=== PATIENT | male | born 1950 | race American Indian/Alaskan Native ===

== ENCOUNTER 2019-03-25 09:43 | Inpatient (IN) | payer MEDICARE ==
[2019-03-25 11:00] LABS: Basophils % (Auto) 0.4 % (0.0-1.8); Eosinophils # (Auto) 0.1 K/mm3 (0.0-0.4); Eosinophils % (Auto) 0.8 % (0.0-4.3); Hematocrit 42.5 % (35.5-45.6); Lymphocytes # (Auto) 3.2 K/mm3 (1.2-5.4); Lymphocytes % (Auto) 44.6 % (13.4-35.0); Mean Corpuscular HGB Conc 33 % (32-34); Mean Corpuscular Volume 89 fl (84-94); Monocytes # (Auto) 0.3 K/mm3 (0.0-0.8); Monocytes % (Auto) 4.8 % (0.0-7.3); Platelet Count 252 K/mm3 (140-440); Red Blood Count 4.78 M/mm3 (3.65-5.03); Red Cell Distribution Width 13.5 % (13.2-15.2)
[2019-03-25 11:16] LABS: Albumin 4.1 g/dL (3.9-5); Calcium 9.8 mg/dL (8.4-10.2)
[2019-03-25 11:31] LABS: INR 1.15 (0.87-1.13); Partial Thromboplastin Time 26.4 Sec. (24.2-36.6); Thrombin Time 18.9 Sec. (15.1-19.6)
--- NOTE | 2019-03-25 12:02 | Emergency Department Report ---
HPI - General Chief Complaint: Neuro Symptoms/Deficit Time Seen by Provider: 03/25/19 11:41 - HPI HPI: Room 22 The patient is a 68-year-old male presenting with a chief complaint lower extremity weakness and slurred speech. Family states the patient has been dragging his right lower extremity and has slurred speech for the past 7 days. Family states over the past 4 days the patient has exhibited difficulty swallowing and has not been able to keep any food down. When asked how he is feeling the patient replies "I don't feel good." The patient fell several days ago and went to his primary physician's office where x-rays were performed (no fractures seen). Location: [See above] Duration: [See above] Quality: [See above] Severity: [See above] Timing: [See above] Context: [See above] Modifying factors: [See above] Associated signs and symptoms: [see above] ED Past Medical Hx - Past Medical History Previous Medical History?: Yes Hx Hypertension: Yes Hx CVA: Yes (right sided weakness) Hx Diabetes: Yes - Surgical History Past Surgical History?: No - Family History Family history: no significant - Social History Smoking Status: Current Every Day Smoker (1/2 pack per day although is slightly low at a starter this ventricular like it away and she is going) Substance Use Type: None ED Review of Systems ROS: Stated complaint: NAUSEA/SLURRED SPEECH,NOT EATING Other details as noted in HPI Constitutional: no symptoms reported ENT: other (dysphagia) Respiratory: no symptoms reported Cardiovascular: denies: chest pain Endocrine: no symptoms reported Gastrointestinal: vomiting Neurological: denies: headache Physical Exam - Physical Exam Vital Signs: Vital Signs 03/25/19 09:58 Temperature 97.4 F L Pulse Rate 95 H Respiratory 18 Rate Blood Pressure 105/56 O2 Sat by Pulse 100 Oximetry Physical Exam: GENERAL: The patient is well-developed well-nourished male sitting on stretcher not appearing to be in acute distress. [] HEENT: Normocephalic. Atraumatic. Extraocular motions are intact. Patient has moist mucous membranes. NECK: Supple. Trachea midline CHEST/LUNGS: Clear to auscultation. There is no respiratory distress noted. HEART/CARDIOVASCULAR: Regular. There is no tachycardia. There is no gallop rub or murmur. ABDOMEN: Abdomen is soft, nontender. Patient has normal bowel sounds. There is no abdominal distention. SKIN: There is no rash. There is no edema. There is no diaphoresis. NEURO: The patient is awake, alert, and oriented. The patient is cooperative. Cranial nerves II through XII grossly intact, no drift. Moves all extremities well. NIHSS= 1 MUSCULOSKELETAL: There is no evidence of acute injury. ED Course Vital Signs 03/25/19 09:58 Temperature 97.4 F L Pulse Rate 95 H Respiratory 18 Rate Blood Pressure 105/56 O2 Sat by Pulse 100 Oximetry ED Medical Decision Making - Lab Data Result diagrams: 03/25/19 10:31 03/25/19 10:31 Laboratory Tests 03/25/19 03/25/19 03/25/19 10:31 10:31 10:31 WBC 7.3 RBC 4.78 Hgb 14.0 Hct 42.5 MCV 89 MCH 29 MCHC 33 RDW 13.5 Plt Count 252 Lymph % (Auto) 44.6 H [place] % (Auto) 4.8 Eos % (Auto) 0.8 Baso % (Auto) 0.4 Lymph # 3.2 [place] # 0.3 Eos # 0.1 Baso # 0.0 Seg Neutrophils % 49.4 Seg Neutrophils # 3.6 PT 14.6 INR 1.15 H APTT 26.4 Thrombin Time 18.9 Sodium 142 Potassium 4.0 Chloride 104.3 Carbon Dioxide 19 L Anion Gap 23 BUN 37 H Creatinine 1.3 Estimated GFR 55 BUN/Creatinine Ratio 28 Glucose 121 H Calcium 9.8 Total Bilirubin 1.00 AST 46 H ALT 46 Alkaline Phosphatase 60 Total Creatine Kinase 145 CK-MB (CK-2) 4.0 CK-MB (CK-2) Rel Index 2.7 Troponin T 0.025 Total Protein 8.4 H Albumin 4.1 Albumin/Globulin Ratio 1.0 - EKG Data -: EKG Interpreted by Ks EKG shows normal: sinus rhythm Rate: bradycardia (58 bpm) - EKG Data When compared to previous EKG there are: previous EKG unavailable Interpretation: nonspecific ST-T wave nisreen (T-wave inversions in leads 3, V4, V5, V6) - Radiology Data Radiology results: report reviewed (CT head), image reviewed (CT head) [facility] [address] [place] [address] Cat Scan Report Signed Patient: KIRA BRUMFIELD SANIA MR#: [id number] : 1950 Acct:[id number] Age/Sex: 68 / M ADM Date: 03/25/19 Loc: ED Attending Dr: Ordering Physician: KAT PACE MD Date of Service: 03/25/19 Procedure(s): CT head/brain wo con Accession Number(s): [id number] cc: KAT PACE MD CT head/brain wo con INDICATION / CLINICAL INFORMATION: 68 years Male; SLURRED SPEECH. TECHNIQUE: Routine CT head without contrast. All CT scans at this location are performed using CT dose reduction for ALARA by means of automated exposure control. COMPARISON: None. FINDINGS: BRAIN / INTRACRANIAL CONTENTS: Small corpus striatal type infarct seen in the anterior gangliocapsular region on the left-most likely late subacute to chronic in age. Small lacunar infarcts seen bilaterally in the gangliocapsular regions. Otherwise, no acute hemorrhage, mass effect, midline shift, hydrocephalus, or acute, large territorial infarct. Mild cerebral and cerebellar atrophy. There are moderate areas of decreased attenuation in the white matter of the cerebral hemispheres. These are nonspecific findings and may be related to microangiopathy (hypertension, diabetes, atherosclerosis), given the patient's age. It might be difficult to evaluate for small areas of ischemia without diffusion imaging by MRI. CRANIOCERVICAL JUNCTION: No significant abnormality. ORBITS: No significant abnormality of visualized orbits. SINUSES / MASTOIDS: No significant abnormality the visualized paranasal sinuses or mastoid air cells. ADDITIONAL FINDINGS: Atherosclerotic disease is seen in the anterior circulation . IMPRESSION: 1. No focal mass, hemorrhage, hydrocephalus, or acute, large territorial infarct. Follow-up with diffusion imaging by MRI, as clinically warranted. Signer Name: Georges Hector MD, III Signed: 03/25/2019 1:15 PM Workstation Name: [id number] Transcribed By: HR Dictated By: Georges menezes MD Electronically Authenticated By: Georges Hector MD Signed Date/Time: 03/25/19 1315 DD/ 1309 TD/TT: - Differential Diagnosis CVA, dysphagia Critical care attestation.: If time is entered above; I have spent that time in minutes in the direct care of this critically ill patient, excluding procedure time. ED Disposition Clinical Impression: CVA (cerebral vascular accident), Dysphagia Disposition: DC-01 TO HOME OR SELFCARE Is pt being admited?: No Does the pt Need Aspirin: No Condition: Stable Time of Disposition: 13:27 (hospitalist paged (Dr Fisher))
--- NOTE | 2019-03-25 13:20 | Cat Scan Report ---
CT head/brain wo con INDICATION / CLINICAL INFORMATION: 68 years Male; SLURRED SPEECH. TECHNIQUE: Routine CT head without contrast. All CT scans at this location are performed using CT dos e reduction for ALARA by means of automated exposure control. COMPARISON: None. FINDINGS: BRAIN / INTRACRANIAL CONTENTS: Small corpus striatal type infarct seen in the anterior gangliocapsula r region on the left-most likely late subacute to chronic in age. Small lacunar infarcts seen bilater ally in the gangliocapsular regions. Otherwise, no acute hemorrhage, mass effect, midline shift, hydrocephalus, or acute, large territori al infarct. Mild cerebral and cerebellar atrophy. There are moderate areas of decreased attenuation in the white matter of the cerebral hemispheres. Th felecia are nonspecific findings and may be related to microangiopathy (hypertension, diabetes, atheroscl erosis), given the patient's age. It might be difficult to evaluate for small areas of ischemia witho ut diffusion imaging by MRI. CRANIOCERVICAL JUNCTION: No significant abnormality. ORBITS: No significant abnormality of visualized orbits. SINUSES / MASTOIDS: No significant abnormality the visualized paranasal sinuses or mastoid air cells. ADDITIONAL FINDINGS: Atherosclerotic disease is seen in the anterior circulation. IMPRESSION: 1. No focal mass, hemorrhage, hydrocephalus, or acute, large territorial infarct. Follow-up with diff usion imaging by MRI, as clinically warranted. Signer Name: Georges Hector MD, III Signed: 03/25/2019 1:15 PM Workstation Name: [id number]
[2019-03-25] MEDS ORDERED: ASPIRIN 325 MG TAB PO ONE (13:28)
--- NOTE | 2019-03-25 23:03 | History and Physical Report ---
History of Present Illness Date of examination: 03/25/19 Date of admission: 03/25/19 13:29 Chief complaint: RLE WEAKNESS ! WEEK History of present illness: 68-year-old male presenting with a chief complaint of Rt lower extremity weakness and slurred speech. Family states the patient has been dragging his right lower extremity and has slurred speech for the past 7 days. Family states over the past 4 days the patient has exhibited difficulty swallowing and has not been able to keep any food down. When asked how he is feeling the patient replies "I don't feel good." The patient fell several days ago and went to his primary physician's office where x-rays were performed (no fractures seen). Past Medical History Previous Medical History?: Yes Hypertension: Yes CVA: Yes (right sided weakness) Diabetes: Yes Surgical History Past Surgical History?: No Family History Family history: no significant Social History Smoking Status: Current Every Day Smoker (1/2 pack per day although is slightly low at a starter this ventricular like it away and she is going) Substance Use Type: None Review of Systems ROS: Stated complaint: NAUSEA/SLURRED SPEECH,NOT EATING Other details as noted in HPI Constitutional: no symptoms reported ENT: other (dysphagia) Respiratory: no symptoms reported Cardiovascular: denies: chest pain Endocrine: no symptoms reported Gastrointestinal: vomiting Neurological: denies: headache Medications and Allergies Allergies Allergy/AdvReac Type Severity Reaction Status Date / Time No Known Allergies Allergy Unverified 03/25/19 09:44 Exam - Constitutional Vitals: Temp Pulse Resp BP Pulse Ox 98.2 F 64 18 147/78 99 03/25/19 11:50 03/25/19 16:30 03/25/19 16:30 03/25/19 16:30 03/25/19 16:30 General appearance: Present: no acute distress, well-nourished - EENT Eyes: Present: PERRL ENT: hearing intact, clear oral mucosa - Neck Neck: Present: supple, normal ROM - Respiratory Respiratory effort: normal Respiratory: bilateral: CTA - Cardiovascular Heart rate: 78 Rhythm: regular Heart Sounds: Present: S1 & S2. Absent: rub, click - Extremities Extremities: no ischemia, pulses intact, pulses symmetrical, No edema, abnormal Peripheral Pulses: within normal limits - Abdominal General gastrointestinal: Present: soft, non-tender, non-distended, normal bowel sounds Male genitourinary: Present: normal - Integumentary Integumentary: Present: clear, warm, dry - Musculoskeletal Musculoskeletal: right sided weakness - Psychiatric Psychiatric: appropriate mood/affect, intact judgment & insight - Neurologic Neurologic: CNII-XII intact, focal deficits (RLE 3/5 power RUE 5-/5), moves all extremities - Allied Health Allied health notes reviewed: nursing, case management Results - Labs CBC & Chem 7: 03/25/19 10:31 03/25/19 10:31 Labs: Laboratory Last Values WBC 7.3 K/mm3 (4.5-11.0) 03/25/19 10:31 RBC 4.78 M/mm3 (3.65-5.03) 03/25/19 10:31 Hgb 14.0 gm/dl (11.8-15.2) 03/25/19 10:31 Hct 42.5 % (35.5-45.6) 03/25/19 10:31 MCV 89 fl (84-94) 03/25/19 10:31 MCH 29 pg (28-32) 03/25/19 10:31 MCHC 33 % (32-34) 03/25/19 10:31 RDW 13.5 % (13.2-15.2) 03/25/19 10:31 Plt Count 252 K/mm3 (140-440) 03/25/19 10:31 Lymph % (Auto) 44.6 % (13.4-35.0) H 03/25/19 10:31 [place] % (Auto) 4.8 % (0.0-7.3) 03/25/19 10:31 Eos % (Auto) 0.8 % (0.0-4.3) 03/25/19 10:31 Baso % (Auto) 0.4 % (0.0-1.8) 03/25/19 10:31 Lymph # 3.2 K/mm3 (1.2-5.4) 03/25/19 10:31 [place] # 0.3 K/mm3 (0.0-0.8) 03/25/19 10:31 Eos # 0.1 K/mm3 (0.0-0.4) 03/25/19 10:31 Baso # 0.0 K/mm3 (0.0-0.1) 03/25/19 10:31 Seg Neutrophils % 49.4 % (40.0-70.0) 03/25/19 10:31 Seg Neutrophils # 3.6 K/mm3 (1.8-7.7) 03/25/19 10:31 PT 14.6 Sec. (12.2-14.9) 03/25/19 10:31 INR 1.15 (0.87-1.13) H 03/25/19 10:31 APTT 26.4 Sec. (24.2-36.6) 03/25/19 10:31 Thrombin Time 18.9 Sec. (15.1-19.6) 03/25/19 10:31 Sodium 142 mmol/L (137-145) 03/25/19 10:31 Potassium 4.0 mmol/L (3.6-5.0) 03/25/19 10:31 Chloride 104.3 mmol/L (98-107) 03/25/19 10:31 Carbon Dioxide 19 mmol/L (22-30) L 03/25/19 10:31 Anion Gap 23 mmol/L 03/25/19 10:31 BUN 37 mg/dL (9-20) H 03/25/19 10:31 Creatinine 1.3 mg/dL (0.8-1.5) 03/25/19 10:31 Estimated GFR 55 ml/min 03/25/19 10:31 BUN/Creatinine Ratio 28 % 03/25/19 10:31 Glucose 121 mg/dL (75-100) H 03/25/19 10:31 POC Glucose 92 (70-105) 03/25/19 13:55 Calcium 9.8 mg/dL (8.4-10.2) 03/25/19 10:31 Total Bilirubin 1.00 mg/dL (0.1-1.2) 03/25/19 10:31 AST 46 units/L (5-40) H 03/25/19 10:31 ALT 46 units/L (7-56) 03/25/19 10:31 Alkaline Phosphatase 60 units/L (35-129) 03/25/19 10:31 Total Creatine Kinase 145 units/L (55-170) 03/25/19 10:31 CK-MB (CK-2) 4.0 ng/mL (0.0-4.0) 03/25/19 10:31 CK-MB (CK-2) Rel Index 2.7 (0-4) 03/25/19 10:31 Troponin T 0.025 ng/mL (0.00-0.029) 03/25/19 10:31 Total Protein 8.4 g/dL (6.3-8.2) H 03/25/19 10:31 Albumin 4.1 g/dL (3.9-5) 03/25/19 10:31 Albumin/Globulin Ratio 1.0 % 03/25/19 10:31 Short CBC 03/25/19 Range/Units 10:31 WBC 7.3 (4.5-11.0) K/mm3 Hgb 14.0 (11.8-15.2) gm/dl Hct 42.5 (35.5-45.6) % Plt Count 252 (140-440) K/mm3 BMP 03/25/19 10:31 Sodium 142 Potassium 4.0 Chloride 104.3 Carbon Dioxide 19 L BUN 37 H Creatinine 1.3 Glucose 121 H Calcium 9.8 Cardiac Enzymes 03/25/19 Range/Units 10:31 Total Creatine Kinase 145 (55-170) units/L CK-MB (CK-2) 4.0 (0.0-4.0) ng/mL Troponin T 0.025 (0.00-0.029) ng/mL Liver Function 03/25/19 Range/Units 10:31 Total Bilirubin 1.00 (0.1-1.2) mg/dL AST 46 H (5-40) units/L ALT 46 (7-56) units/L Alkaline Phosphatase 60 (35-129) units/L Albumin 4.1 (3.9-5) g/dL - Imaging and Cardiology EKG: report reviewed (Sinus Bradycardia 58/min) CT Scan - head: report reviewed (NAF) Assessment and Plan Advance Directives: Yes (Full code) VTE prophylaxis?: Chemical Plan of care discussed with patient/family: Yes - Patient Problems (1) CVA (cerebral vascular accident) Current Visit: Yes Status: Acute Qualifiers: Laterality of affected vessel: left Plan to address problem: CVA w/u especially MRI Neuro consult requested (2) Dysphagia Current Visit: Yes Status: Acute Qualifiers: Dysphagia type: oral phase Qualified Code(s): R13.11 - Dysphagia, oral phase Plan to address problem: Swallow screen and MBS if necessary (3) HTN (hypertension) Current Visit: Yes Status: Chronic Qualifiers: Hypertension type: essential hypertension Qualified Code(s): I10 - Essential (primary) hypertension Plan to address problem: Cont antihypertensives (4) T2DM (type 2 diabetes mellitus) Current Visit: Yes Status: Chronic Qualifiers: Diabetes mellitus detention insulin use: without intermission coordinator use Plan to address problem: Cont coverage (5) DVT prophylaxis Current Visit: Yes Status: Acute Plan to address problem: On Lovenox and GI prophylaxis
[2019-03-25] MEDS ORDERED: ONDANSETRON 4 MG/2 ML INJ IV PRN (23:04)
[2019-03-25] MEDS ORDERED: ACETAMINOPHEN 325 MG TAB PO PRN (23:04)
[2019-03-25] MEDS ORDERED: oxyCODONE /ACETAMINOPHEN 5-325MG TAB PO PRN (23:05)
[2019-03-25] MEDS ORDERED: HYDROmorphone 1 MG/1 ML INJ IV PRN (23:05)
[2019-03-25] MEDS ORDERED: METOCLOPRAMIDE 10 MG/2 ML INJ IV PRN (23:05)
[2019-03-25] MEDS ORDERED: SODIUM CHLORIDE 0.9% 1000 ML 1,000 ML IV SCH (23:45)
[2019-03-26] MEDS: FAMOTIDINE 20 MG TAB PO SCH ×3 (02:35→21:08)
--- NOTE | 2019-03-26 10:02 | Consultation ---
History of Present Illness Consult date: 03/26/19 History of present illness: see the note from ED severe legs weakness and Slurred speech CT shows chronic multi infract state due to small vessel disease will check CPK due to leg weakness Medications and Allergies Allergies Allergy/AdvReac Type Severity Reaction Status Date / Time No Known Allergies Allergy Unverified 03/25/19 09:44 Active Meds: Active Medications Acetaminophen (Tylenol) 650 mg PO Q4H PRN PRN Reason: Pain MILD(1-3)/Fever >100.5/[place] Famotidine (Pepcid) 20 mg PO BID [facility] Last Admin: 03/26/19 02:35 Dose: Not Given Documented by: Hydromorphone HCl (Dilaudid) 0.25 mg IV Q3H PRN PRN Reason: Pain, Moderate (4-6) Sodium Chloride (Nacl 0.9% 1000 Ml) 1,000 mls @ 75 mls/hr IV DIRECT [place]I Stop: 03/26/19 11:00 Metoclopramide HCl (Reglan) 10 mg IV Q6H PRN PRN Reason: Nausea And Vomiting Ondansetron HCl (Zofran) 4 mg IV Q8H PRN PRN Reason: Nausea And Vomiting Oxycodone/Acetaminophen (Percocet 5/325) 1 tab PO Q6H PRN PRN Reason: Pain, Moderate (4-6) Sodium Chloride (Sodium Chloride Flush Syringe 10 Ml) 10 ml IV BID [place] Sodium Chloride (Sodium Chloride Flush Syringe 10 Ml) 10 ml IV PRN PRN PRN Reason: LINE FLUSH Physical Examination - Vital Signs Vital Signs: Vital Signs Temp Pulse Resp BP Pulse Ox 97.4 F L 95 H 18 105/56 100 03/25/19 09:58 03/25/19 09:58 03/25/19 09:58 03/25/19 09:58 03/25/19 09:58 Results - Laboratory Findings CBC and BMP: 03/25/19 10:31 03/25/19 10:31 Abnormal Lab Findings: Abnormal Labs 03/25/19 03/25/19 03/25/19 10:31 10:31 10:31 Lymph % (Auto) 44.6 H INR 1.15 H Carbon Dioxide 19 L BUN 37 H Glucose 121 H AST 46 H Total Protein 8.4 H
--- NOTE | 2019-03-26 10:29 | Consultation ---
HISTORY OF PRESENT ILLNESS: This is a 68-year-old male who presents to [facility] with chief complaint of lower leg weakness and aphasia. Family says that he had developed lower extremity weakness, slurred speech difficulty, not eating. He presented to the hospital with blood pressure was slightly reduced at 105/56. His blood glucose was elevated at 121. His hematocrit was 42. His BUN was 37. His creatinine was 1.3. AST and ALT levels were slightly elevated. Total protein was 8.4, albumin was 4.1. The patient had a CT scan of the head, which I have reviewed and the CT scan shows rodriguez and white matter atrophy, evidence of an old infarct in both external and internal capsules, attenuation of the white matter in the deep white matter, particularly so in the left versus the right hemisphere. This is more noticeable in the left mid frontal region and in the deep white matter. 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 The patient's temporal horns are unremarkable. He has white matter changes in the deep white matter bilaterally. Reviewing over his brainstem, I do not see any marked abnormalities there. PHYSICAL EXAMINATION: VITAL SIGNS: The patient's blood pressure is 135/76, temperature is 97.5, pulse rate is 60, respirations 18. NEUROLOGIC: The patient's gait is reduced. He has slurred speech. Affect is withdrawn. Cranial nerves otherwise intact. No tremors or asterixis. No parkinsonian signs or symptoms. Oriented x 3. Motor tone is reduced in the legs. Babinski signs are not present. Reflexes are present, but reduced. IMPRESSION: Multi-stroke syndrome. I suspect deep white matter disease, probably infarcts, probably lacunar infarcts of very marked nature. I would recommend vascular workup, getting carotid artery ultrasound, echocardiography, MRI. I would also think it is probably not a bad idea to get a C-spine series as occasionally this can be an additional issue that needs addressing. JOB# [id number] RAI/NTS
--- NOTE | 2019-03-26 12:31 | Consultation ---
History of Present Illness - Reason for Consult Consult date: 03/26/19 chronic renal failure Requesting physician: ELEANOR SINGH - History of Present Illness 68-year-old male presenting with a chief complaint of Rt lower extremity weakness and slurred speech. Family stated the patient has been dragging his right lower extremity and has slurred speech for the past 7 days. Family stated over the past 4 days the patient has exhibited difficulty swallowing and has not been able to keep any food down. When asked how he is feeling the patient replies "I don't feel good." The patient fell several days ago and went to his primary physician's office where x-rays were performed (no fractures seen). Past History Past Surgical History: No surgical history Social history: no significant social history Family history: no significant family history Medications and Allergies Allergies Allergy/AdvReac Type Severity Reaction Status Date / Time No Known Allergies Allergy Unverified 03/25/19 09:44 Active Meds: Active Medications Acetaminophen (Tylenol) 650 mg PO Q4H PRN PRN Reason: Pain MILD(1-3)/Fever >100.5/[place] Famotidine (Pepcid) 20 mg PO BID [facility] Last Admin: 03/26/19 11:40 Dose: 20 mg Documented by: Hydromorphone HCl (Dilaudid) 0.25 mg IV Q3H PRN PRN Reason: Pain, Moderate (4-6) Metoclopramide HCl (Reglan) 10 mg IV Q6H PRN PRN Reason: Nausea And Vomiting Ondansetron HCl (Zofran) 4 mg IV Q8H PRN PRN Reason: Nausea And Vomiting Oxycodone/Acetaminophen (Percocet 5/325) 1 tab PO Q6H PRN PRN Reason: Pain, Moderate (4-6) Sodium Chloride (Sodium Chloride Flush Syringe 10 Ml) 10 ml IV BID [facility] Last Admin: 03/26/19 11:41 Dose: 10 ml Documented by: Sodium Chloride (Sodium Chloride Flush Syringe 10 Ml) 10 ml IV PRN PRN PRN Reason: LINE FLUSH Exam - Vital Signs Vital signs: Vital Signs Temp Pulse Resp BP Pulse Ox 97.4 F L 95 H 18 105/56 100 03/25/19 09:58 03/25/19 09:58 03/25/19 09:58 03/25/19 09:58 03/25/19 09:58 - General Appearance General appearance: well-developed, well-nourished, appears stated age EENT: PERRL, mucous membranes moist Neck: Present: neck supple, trachea midline. Absent: JVD/HJR, Masses Respiratory: Clear to Ascultation Heart: regular, normal heart rate Gastrointestinal: Present: normal, normoactive bowel sounds Integumentary: no rash, other (no edema) Results - Lab Results 03/25/19 10:31 03/25/19 10:31 Most recent lab results Calcium 9.8 mg/dL (8.4-10.2) 03/25/19 10:31 Assessment and Plan Impression * Renal insufficiency. Most likely acute on chronic * Likely CVA * History of hypertension * Metabolic acidosis Recommendations * Check a UA as well as a fractional excretion of sodium * Renal ultrasound to assess kidney size and echogenicity * Gentle IV hydration * Avoid nephrotoxins * Monitor fluid status and electrolytes closely * Thank you very much for the consultation. Shall follow along with you
[2019-03-26 13:16] LABS: Alanine Aminotransferase 50 units/L (7-56); Albumin 3.7 g/dL (3.9-5); BUN/Creatinine Ratio 30; Blood Urea Nitrogen 33 mg/dL (9-20); Calcium 9.8 mg/dL (8.4-10.2); Chol/HDL Ratio 5.81 %; HDL Cholesterol 27 mg/dL (40-59); Hemolysis Index 16; LDL Cholesterol,Direct 117 mg/dL (50-130)
--- NOTE | 2019-03-26 13:24 | Progress Note ---
Assessment and Plan - Patient Problems (1) Left-sided muscle weakness Current Visit: Yes Status: Acute Plan to address problem: May be secondary to dehydration versus new CVA. CT head shows old lacunar infarcts. MRI pending. We'll treat now as if patient was having a CVA. Rehabilitation MRI pending. Continue antiplatelet and antilipid therapy. (2) CVA (cerebral vascular accident) Current Visit: Yes Status: Acute Qualifiers: Laterality of affected vessel: left Plan to address problem: Cannot confirm new CVA now but can't confirm oh CVA or coronary infarct. Neurology following. (3) HTN (hypertension) Current Visit: Yes Status: Chronic Qualifiers: Hypertension type: essential hypertension Qualified Code(s): I10 - Essential (primary) hypertension Plan to address problem: Patient continues to have fair control of blood pressure. 135/76. We'll start patient on amlodipine if BP is high. 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 History Interval history: Patient 68-year-old male presents with increasing left lower extremity weakness and slurred speech 5-7 days. Patient at present alert still has left-sided weakness. Brother at bedside no new concerns at this particular time. Patient informed he's had a previous CVA at some point most likely lacunar infarct. Multi-infarct disease. MRI pending. Patient also had renal insufficiency. Hospitalist Physical - Constitutional Vitals: Temp Pulse Resp BP Pulse Ox 97.9 F 48 L 18 151/73 99 03/26/19 12:04 03/26/19 12:04 03/26/19 12:04 03/26/19 12:04 03/26/19 12:04 General appearance: Present: no acute distress, well-nourished - EENT Eyes: Present: PERRL, EOM intact ENT: poor dentition, other (decreased hearing extremely poor dentition tension) - Neck Neck: Present: supple, normal ROM - Respiratory Respiratory effort: normal Respiratory: bilateral: CTA, rhonchi (few) - Cardiovascular Rhythm: regular Heart Sounds: Present: S1 & S2 - Extremities Extremities: no ischemia, pulses intact, No edema Extremity abnormal: pulses diminished Peripheral Pulses: within normal limits - Abdominal General gastrointestinal: soft, non-tender, non-distended, normal bowel sounds - Integumentary Integumentary: Present: clear, warm, dry - Psychiatric Psychiatric: appropriate mood/affect, intact judgment & insight, memory intact, cooperative - Neurologic Neurologic: focal deficits, other (left-sided weakness.) Results - Labs CBC & Chem 7: 03/25/19 10:31 03/26/19 12:27 Labs: Laboratory Last Values WBC 7.3 K/mm3 (4.5-11.0) 03/25/19 10:31 RBC 4.78 M/mm3 (3.65-5.03) 03/25/19 10:31 Hgb 14.0 gm/dl (11.8-15.2) 03/25/19 10:31 Hct 42.5 % (35.5-45.6) 03/25/19 10:31 MCV 89 fl (84-94) 03/25/19 10:31 MCH 29 pg (28-32) 03/25/19 10:31 MCHC 33 % (32-34) 03/25/19 10:31 RDW 13.5 % (13.2-15.2) 03/25/19 10:31 Plt Count 252 K/mm3 (140-440) 03/25/19 10:31 Lymph % (Auto) 44.6 % (13.4-35.0) H 03/25/19 10:31 Dare % (Auto) 4.8 % (0.0-7.3) 03/25/19 10:31 Eos % (Auto) 0.8 % (0.0-4.3) 03/25/19 10:31 Baso % (Auto) 0.4 % (0.0-1.8) 03/25/19 10:31 Lymph # 3.2 K/mm3 (1.2-5.4) 03/25/19 10:31 Dare # 0.3 K/mm3 (0.0-0.8) 03/25/19 10:31 Eos # 0.1 K/mm3 (0.0-0.4) 03/25/19 10:31 Baso # 0.0 K/mm3 (0.0-0.1) 03/25/19 10:31 Seg Neutrophils % 49.4 % (40.0-70.0) 03/25/19 10:31 Seg Neutrophils # 3.6 K/mm3 (1.8-7.7) 03/25/19 10:31 PT 14.6 Sec. (12.2-14.9) 03/25/19 10:31 INR 1.15 (0.87-1.13) H 03/25/19 10:31 APTT 26.4 Sec. (24.2-36.6) 03/25/19 10:31 Thrombin Time 18.9 Sec. (15.1-19.6) 03/25/19 10:31 Sodium 141 mmol/L (137-145) 03/26/19 12:27 Potassium 4.2 mmol/L (3.6-5.0) 03/26/19 12:27 Chloride 104.4 mmol/L (98-107) 03/26/19 12:27 Carbon Dioxide 21 mmol/L (22-30) L 03/26/19 12:27 Anion Gap 20 mmol/L 03/26/19 12:27 BUN 33 mg/dL (9-20) H 03/26/19 12:27 Creatinine 1.1 mg/dL (0.8-1.5) 03/26/19 12:27 Estimated GFR > 60 ml/min 03/26/19 12:27 BUN/Creatinine Ratio 30 % 03/26/19 12:27 Glucose 156 mg/dL (75-100) H 03/26/19 12:27 POC Glucose 70 (70-105) 03/26/19 11:41 Hemoglobin A1c 5.7 % (4-6) 03/25/19 23:24 Calcium 9.8 mg/dL (8.4-10.2) 03/26/19 12:27 Total Bilirubin 0.90 mg/dL (0.1-1.2) 03/26/19 12:27 AST 51 units/L (5-40) H 03/26/19 12:27 ALT 50 units/L (7-56) 03/26/19 12:27 Alkaline Phosphatase 57 units/L (35-129) 03/26/19 12:27 Total Creatine Kinase 117 units/L (55-170) 03/26/19 12:27 CK-MB (CK-2) 4.0 ng/mL (0.0-4.0) 03/25/19 10:31 CK-MB (CK-2) Rel Index 2.7 (0-4) 03/25/19 10:31 Troponin T 0.025 ng/mL (0.00-0.029) 03/25/19 10:31 Total Protein 7.9 g/dL (6.3-8.2) 03/26/19 12:27 Albumin 3.7 g/dL (3.9-5) L 03/26/19 12:27 Albumin/Globulin Ratio 0.9 % 03/26/19 12:27 Triglycerides 116 mg/dL (2-149) 03/26/19 12:27 Cholesterol 157 mg/dL (50-199) 03/26/19 12:27 LDL Cholesterol Direct 117 mg/dL (50-130) 03/26/19 12:27 HDL Cholesterol 27 mg/dL (40-59) L 03/26/19 12:27 Cholesterol/HDL Ratio 5.81 % 03/26/19 12:27 - Imaging and Cardiology CT Scan - head: report reviewed MRI - head: image reviewed Active Medications - Current Medications Current Medications: Generic Name Dose Route Start Last Admin Trade Name Freq PRN Reason Stop Dose Admin Acetaminophen 650 mg 03/25/19 23:04 Tylenol PO Q4H PRN Pain MILD(1-3)/Fever >100.5/[place] Famotidine 20 mg 03/25/19 23:45 03/26/19 11:40 Pepcid PO 20 mg BID CITLALLI Administration Hydromorphone HCl 0.25 mg 03/25/19 23:05 Dilaudid IV Q3H PRN Pain, Moderate (4-6) Sodium Chloride 1,000 mls @ 75 mls/hr 03/26/19 13:00 Nacl 0.45% 1000 Ml IV DIRECT CITLALLI Metoclopramide HCl 10 mg 03/25/19 23:05 Reglan IV Q6H PRN Nausea And Vomiting Ondansetron HCl 4 mg 03/25/19 23:04 Zofran IV Q8H PRN Nausea And Vomiting Oxycodone/Acetaminophen 1 tab 03/25/19 23:05 Percocet 5/325 PO Q6H PRN Pain, Moderate (4-6) Sodium Chloride 10 ml 03/26/19 10:00 03/26/19 11:41 Sodium Chloride Flush Syringe 10 Ml IV 10 ml BID CITLALLI Administration Sodium Chloride 10 ml 03/25/19 23:04 Sodium Chloride Flush Syringe 10 Ml IV PRN PRN LINE FLUSH Nutrition/Malnutrition Assess - Dietary Evaluation Nutrition/Malnutrition Findings: Nutrition Notes Start: 03/26/19 12:21 Freq: Status: Active Protocol: Document 03/26/19 12:21 LP (Rec: 03/26/19 12:26 LP [id number]) Nutrition Notes Need for Assessment generated from: MD Order Initial or Follow up Assessment Current Diagnosis Diabetes,Hypertension,Stroke Other Pertinent Diagnosis Dysphagia Current Diet Cardiac Labs/Tests Reviewed Pertinent Medications NS at 75ml/hr Height 5 ft 9 in Weight 65.77 kg [place] Body Weight (kg) 72.72 BMI 21.4 Subjective/Other Information Consult for diet supplement. Pt not in room at time of visit. Burn Absent Trauma Absent Minimum of two criteria No #1 Nutrition Diagnosis Predicted suboptimal energy intake Etiology Advanced age and previous CVA As Evidenced by Signs and Symptoms Pt not in room and MD order for supplement Is patient on ventilator? No Is Patient Ambulatory and/or Out of Bed No REE-([place]-St. Jeor-confined to bed) 8522.446 Calculation Used for Recommendations [place]-St Jeor Additional Notes Protein needs are 66-79g (1-1. 2g/kg) Fluid needs are 1ml/kcal Nutrition Intervention Change Diet Order: Mechanical soft cardiac per MD Add Supplement/Snack (indicate name/kcal Ensure Enlive BID /protein ) Provides kCal: 700 Provides Protein (gm) 40 Goal #1 Meet at least 80% of kcal and protein needs meals and ONS Anticipated Discharge Needs: Unable to determine at this time Follow-Up By: 03/28/19 Additional Comments Follow for intakes and ONS tolerance - Malnutrition Assessment Minimum of two criteria: Yes - Attestation Statement I have reviewed and agreed w/ Malnutrition eval & tx plan: Yes
[2019-03-26 13:30] LABS: Basophils % (Auto) 0.6 % (0.0-1.8); Eosinophils # (Auto) 0.1 K/mm3 (0.0-0.4); Eosinophils % (Auto) 1.1 % (0.0-4.3); Hematocrit 40.6 % (35.5-45.6); Hemoglobin 13.6 gm/dl (11.8-15.2); Lymphocytes # (Auto) 2.9 K/mm3 (1.2-5.4); Lymphocytes % (Auto) 54.6 % (13.4-35.0); Mean Corpuscular HGB Conc 33 % (32-34); Mean Corpuscular Volume 89 fl (84-94); Monocytes # (Auto) 0.2 K/mm3 (0.0-0.8); Monocytes % (Auto) 4.6 % (0.0-7.3); Platelet Count 228 K/mm3 (140-440); Red Blood Count 4.58 M/mm3 (3.65-5.03); Red Cell Distribution Width 13.5 % (13.2-15.2)
[2019-03-26] MEDS: SODIUM CHLORIDE 0.45% 1000 ML 1,000 ML IV SCH (13:43)
--- NOTE | 2019-03-26 14:58 | Magnetic Resonance Report ---
NONENHANCED MR SCAN OF THE BRAIN: INDICATION / CLINICAL INFORMATION: stroke. Episode of slurred speech TECHNIQUE: Multiplanar, multisequence MR images of the brain were noncontrast MRI brain normal brain MR obtained . COMPARISON: CT scan from 03/25/2019 FINDINGS: BRAIN / INTRACRANIAL CONTENTS: I do not see acute infarction in the major speech areas. However, stre aky area of restrictive diffusion is seen in the right cerebellar hemisphere extending towards the fo urth ventricle. This infarction is more than 9 hours old and this is increased FLAIR and T2 signal in tensities) but less than 3 days old (low ADC values). In the gradient echo images, I do not see hemor rhagic changes. Patchy periventricular intensity seen in the fariba and in the left pyramid of the medulla probably due to chronic microvascular angiopathic changes. Chronic streaky ischemic changes are seen in the left cerebellum also. In the cerebral hemispheres, confluent periventricular and deep hemispheric white matter hyperintensi ties seen CRANIOCERVICAL JUNCTION: No significant abnormality. VASCULAR FLOW-VOIDS: No significant abnormality. ORBITS: No significant abnormality of visualized orbits. SINUSES / MASTOIDS: No significant abnormality of visualized sinuses and mastoid air cells. ADDITIONAL FINDINGS: None. IMPRESSION: 1. Limited MRI scan due to motion related artifacts Streaky subacute ischemic area in the right cerebellar; multiple chronic streaky ischemic changes in both cerebellar hemispheres Confluent periventricular and deep hemispheric white matter lesions in both cerebral hemispheres due to microvascular faint angiopathy. Signer Name: Meaghan Castro MD Signed: 03/26/2019 2:53 PM Workstation Name: [id number]
[2019-03-26 17:16] LABS: Bacteria,Urine 1+ /HPF (Negative); Bilirubin,Urine NEG (Negative); Blood,Urine NEG (Negative); Color,Urine Amber (Yellow); Hyaline Casts,Urine 1 /LPF; Mucus,Urine 1+ /HPF; Protein,Urine <15 mg/dL mg/dL (Negative)
[2019-03-26 17:17] LABS: Creatinine,Urine 315.6 mg/dL (0.1-20.0)
--- NOTE | 2019-03-26 17:43 | Ultrasound Report ---
. ULTRASOUND RENAL INDICATION: SUZANNE. COMPARISON: No relevant prior imaging study available. FINDINGS: RIGHT KIDNEY: Size: 10.1 cm. Echogenicity: Normal. Cortical thickness: 1.5 cm. Hydronephrosis: None. Cyst or mass: None. Stones: None. LEFT KIDNEY: Size: 10.4 cm. Echogenicity: Normal. Cortical thickness: 1.5 cm.. Hydronephrosis: None. Cyst or mass: None. Stones: None. Urinary Bladder: Bladder wall is thickened and the prostate is enlarged measuring 3.9 x 3.6 x 3.1 cm. . Free Fluid: None. Additional Findings: None. IMPRESSION 1. No acute sonographic abnormality of the kidneys. Enlarged prostate with thickened bladder wall sug gesting outlet obstruction. Signer Name: Evans Colón MD Signed: 03/26/2019 5:39 PM Workstation Name: [id number]
[2019-03-27] MEDS: SODIUM CHLORIDE 0.45% 1000 ML 1,000 ML IV SCH ×2 (05:09→17:35)
--- NOTE | 2019-03-27 08:18 | Progress Note ---
Subjective Date of service: 03/27/19 Interval history: still with evidence of severe slurred speech and confusion since onset pf prtobable stroke explained the dx to the patient Objective - Vital Sign Vital Signs - 12hr 03/26/19 03/26/19 03/27/19 21:08 23:43 04:51 Temperature 97.7 F 98.1 F Pulse Rate 63 59 L Respiratory 20 18 20 Rate Blood Pressure 138/86 123/72 O2 Sat by Pulse 99 97 Oximetry 03/27/19 03/27/19 05:18 08:08 Temperature 98.2 F Pulse Rate 63 54 L Respiratory 18 Rate Blood Pressure 153/77 O2 Sat by Pulse 98 Oximetry - Laboratory Findings CBC and BMP: 03/26/19 12:27 03/26/19 12:27 Abnormal Lab Findings: Abnormal Labs 03/25/19 03/25/19 03/25/19 10:31 10:31 10:31 Lymph % (Auto) 44.6 H Seg Neutrophils % INR 1.15 H Carbon Dioxide 19 L BUN 37 H Glucose 121 H POC Glucose AST 46 H Total Protein 8.4 H Albumin HDL Cholesterol Urine WBC (Auto) Urine Creatinine 03/26/19 03/26/19 03/26/19 12:27 12:27 22:11 Lymph % (Auto) 54.6 H Seg Neutrophils % 39.1 L INR Carbon Dioxide 21 L BUN 33 H Glucose 156 H POC Glucose 149 H AST 51 H Total Protein Albumin 3.7 L HDL Cholesterol 27 L Urine WBC (Auto) Urine Creatinine 03/26/19 03/26/19 Unknown Unknown Lymph % (Auto) Seg Neutrophils % INR Carbon Dioxide BUN Glucose POC Glucose AST Total Protein Albumin HDL Cholesterol Urine WBC (Auto) 9.0 H Urine Creatinine 315.6 H
[2019-03-27 08:35] LABS: BUN/Creatinine Ratio 28; Blood Urea Nitrogen 25 mg/dL (9-20); Hemolysis Index 7
[2019-03-27] MEDS: FAMOTIDINE 20 MG TAB PO SCH ×2 (09:20→21:34)
--- NOTE | 2019-03-27 12:24 | Progress Note ---
Assessment and Plan Impression * Renal insufficiency. Most likely acute on chronic * Likely CVA * History of hypertension * Metabolic acidosis Recommendations * His renal function is much improved. She most likely had prerenal component. * Urine studies consistent with prerenal status. * He does have some pyuria. Check urine culture as well as urine for eosi nophil. Add oral antibiotics * Renal ultrasound shows normal kidneys. However he does have enlarged prostate and thickening of the bladder wall. Add Flomax. * Continue Gentle IV hydration * Avoid nephrotoxins * Monitor fluid status and electrolytes closely Subjective Date of service: 03/27/19 Interval history: Patient is comfortable this morning. Denies any shortness of breath. No nausea or vomiting. Objective - Vital Signs Vital signs: Vital Signs - 12hr 03/27/19 03/27/19 03/27/19 04:51 05:18 08:08 Temperature 98.1 F 98.2 F Pulse Rate 59 L 63 54 L Respiratory 20 18 Rate Blood Pressure 123/72 153/77 O2 Sat by Pulse 97 98 Oximetry 03/27/19 08:11 Temperature Pulse Rate Respiratory 18 Rate Blood Pressure O2 Sat by Pulse Oximetry - General Appearance General appearance: well-developed, well-nourished, appears stated age EENT: PERRL, mucous membranes moist Neck: no JVD, no thyromegaly, no carotid bruit, supple Respiratory: Present: Clear to Ascultation Cardiology: regular, normal heart rate Gastrointestinal: normal, normoactive bowel sounds Integumentary: no rash, other (no edema) - Lab 03/26/19 12:27 03/27/19 07:19 Most recent lab results Calcium 9.0 mg/dL (8.4-10.2) 03/27/19 07:19 Urine Creatinine 315.6 mg/dL (0.1-20.0) H 03/26/19 Unknown Urine Sodium 56 mmol/L 03/26/19 Unknown Medications & Allergies - Medications Allergies/Adverse Reactions: Allergies No Known Allergies Allergy (Unverified 03/25/19 09:44) Active Medications: Generic Name Dose Route Start Last Admin Trade Name Freq PRN Reason Stop Dose Admin Acetaminophen 650 mg 03/25/19 23:04 Tylenol PO Q4H PRN Pain MILD(1-3)/Fever >100.5/[place] Famotidine 20 mg 03/25/19 23:45 03/27/19 09:20 Pepcid PO 20 mg BID CITLALLI Administration Hydromorphone HCl 0.25 mg 03/25/19 23:05 Dilaudid IV Q3H PRN Pain, Moderate (4-6) Sodium Chloride 1,000 mls @ 75 mls/hr 03/26/19 13:00 03/27/19 05:09 Nacl 0.45% 1000 Ml IV 75 mls/hr DIRECT CITLALLI Administration Metoclopramide HCl 10 mg 03/25/19 23:05 Reglan IV Q6H PRN Nausea And Vomiting Ondansetron HCl 4 mg 03/25/19 23:04 Zofran IV Q8H PRN Nausea And Vomiting Oxycodone/Acetaminophen 1 tab 03/25/19 23:05 03/26/19 21:08 Percocet 5/325 PO 1 tab Q6H PRN Administration Pain, Moderate (4-6) Sodium Chloride 10 ml 03/26/19 10:00 03/27/19 09:20 Sodium Chloride Flush Syringe 10 Ml IV 10 ml BID CITLALLI Administration Sodium Chloride 10 ml 03/25/19 23:04 Sodium Chloride Flush Syringe 10 Ml IV PRN PRN LINE FLUSH
--- NOTE | 2019-03-27 13:22 | Progress Note ---
Assessment and Plan - Patient Problems (1) Left-sided muscle weakness Current Visit: Yes Status: Acute Plan to address problem: Left-sided muscle weakness has improved significantly. Patient attempted to eat meals. I think most likely secondary to dehydration having watershed effect or previous CVA. Patient is moving hydrated feels good and alert. I think we'll perform physical therapy on Thursday to assess patient's needs whether physical. Inpatient rehabilitation. Appears to be a candidate for physical therapy at home. Important note however patient was living at home by himself. Family at bedside states this is most likely what he may be going back to. She was getting around with a walker prior to admission. (2) CVA (cerebral vascular accident) Current Visit: Yes Status: Acute Qualifiers: Laterality of affected vessel: left Plan to address problem: Patient appears to have had multiple subacute or old CVAs. I think this is the most likely etiology for his cognitive decline and debility. Home therapy versus custodial facility. (3) HTN (hypertension) Current Visit: Yes Status: Chronic Qualifiers: Hypertension type: essential hypertension Qualified Code(s): I10 - Esse ntial (primary) hypertension Plan to address problem: Patient continues to have fair control of blood pressure. 135/76. We'll start patient on amlodipine if BP is high. We'll add low-dose calcium channel natalie. Patient is somewhat bradycardic therefore will hold beta natalie at this time. 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 History Interval history: He should much improved today alert able to move all extremities. Minimal cogn itive impairment but this is at baseline and family at bedside. Daughter has concerns about patient's swallowing and fact that he has overtime aphasia and dysphagia. Patient states cannot swallow food. Hospitalist Physical - Constitutional Vitals: Temp Pulse Resp BP Pulse Ox 98.2 F 58 L 18 157/75 99 03/27/19 08:08 03/27/19 12:25 03/27/19 08:11 03/27/19 12:25 03/27/19 12:25 General appearance: Present: no acute distress, well-nourished, disheveled - EENT Eyes: Present: PERRL, EOM intact ENT: hearing intact, clear oral mucosa, poor dentition, no oropharyngeal erythema, no thrush, no ulcerations - Neck Neck: Present: supple, normal ROM - Respiratory Respiratory effort: normal Respiratory: bilateral: rales (base) - Cardiovascular Rhythm: regular - Extremities Extremities: no ischemia, pulses intact, pulses symmetrical, No edema, normal temperature, normal color Peripheral Pulses: within normal limits - Abdominal General gastrointestinal: soft, non-tender, non-distended, normal bowel sounds, no hepatomegaly, no splenomegaly - Integumentary Integumentary: Present: clear, warm, dry - Psychiatric Psychiatric: appropriate mood/affect, intact judgment & insight, memory intact - Neurologic Neurologic: CNII-XII intact, moves all extremities, other (cognitive impairment.) Results - Labs CBC & Chem 7: 03/26/19 12:27 03/27/19 07:19 Labs: Laboratory Last Values WBC 5.3 K/mm3 (4.5-11.0) 03/26/19 12:27 RBC 4.58 M/mm3 (3.65-5.03) 03/26/19 12:27 Hgb 13.6 gm/dl (11.8-15.2) 03/26/19 12:27 Hct 40.6 % (35.5-45.6) 03/26/19 12:27 MCV 89 fl (84-94) 03/26/19 12:27 MCH 30 pg (28-32) 03/26/19 12:27 MCHC 33 % (32-34) 03/26/19 12:27 RDW 13.5 % (13.2-15.2) 03/26/19 12:27 Plt Count 228 K/mm3 (140-440) 03/26/19 12:27 Lymph % (Auto) 54.6 % (13.4-35.0) H 03/26/19 12:27 [place] % (Auto) 4.6 % (0.0-7.3) 03/26/19 12:27 Eos % (Auto) 1.1 % (0.0-4.3) 03/26/19 12:27 Baso % (Auto) 0.6 % (0.0-1.8) 03/26/19 12:27 Lymph # 2.9 K/mm3 (1.2-5.4) 03/26/19 12:27 [place] # 0.2 K/mm3 (0.0-0.8) 03/26/19 12:27 Eos # 0.1 K/mm3 (0.0-0.4) 03/26/19 12:27 Baso # 0.0 K/mm3 (0.0-0.1) 03/26/19 12:27 Seg Neutrophils % 39.1 % (40.0-70.0) L 03/26/19 12:27 Seg Neutrophils # 2.1 K/mm3 (1.8-7.7) 03/26/19 12:27 PT 14.6 Sec. (12.2-14.9) 03/25/19 10:31 INR 1.15 (0.87-1.13) H 03/25/19 10:31 APTT 26.4 Sec. (24.2-36.6) 03/25/19 10:31 Thrombin Time 18.9 Sec. (15.1-19.6) 03/25/19 10:31 Sodium 140 mmol/L (137-145) 03/27/19 07:19 Potassium 3.9 mmol/L (3.6-5.0) 03/27/19 07:19 Chloride 105.2 mmol/L (98-107) 03/27/19 07:19 Carbon Dioxide 18 mmol/L (22-30) L 03/27/19 07:19 Anion Gap 21 mmol/L 03/27/19 07:19 BUN 25 mg/dL (9-20) H 03/27/19 07:19 Creatinine 0.9 mg/dL (0.8-1.5) 03/27/19 07:19 Estimated GFR > 60 ml/min 03/27/19 07:19 BUN/Creatinine Ratio 28 % 03/27/19 07:19 Glucose 99 mg/dL (75-100) 03/27/19 07:19 POC Glucose 149 (70-105) H 03/26/19 22:11 Hemoglobin A1c 5.7 % (4-6) 03/25/19 23:24 Calcium 9.0 mg/dL (8.4-10.2) 03/27/19 07:19 Total Bilirubin 0.90 mg/dL (0.1-1.2) 03/26/19 12:27 AST 51 units/L (5-40) H 03/26/19 12:27 ALT 50 units/L (7-56) 03/26/19 12:27 Alkaline Phosphatase 57 units/L (35-129) 03/26/19 12:27 Total Creatine Kinase 117 units/L (55-170) 03/26/19 12:27 CK-MB (CK-2) 4.0 ng/mL (0.0-4.0) 03/25/19 10:31 CK-MB (CK-2) Rel Index 2.7 (0-4) 03/25/19 10:31 Troponin T 0.025 ng/mL (0.00-0.029) 03/25/19 10:31 Total Protein 7.9 g/dL (6.3-8.2) 03/26/19 12:27 Albumin 3.7 g/dL (3.9-5) L 03/26/19 12:27 Albumin/Globulin Ratio 0.9 % 03/26/19 12:27 Triglycerides 116 mg/dL (2-149) 03/26/19 12:27 Cholesterol 157 mg/dL (50-199) 03/26/19 12:27 LDL Cholesterol Direct 117 mg/dL (50-130) 03/26/19 12:27 HDL Cholesterol 27 mg/dL (40-59) L 03/26/19 12:27 Cholesterol/HDL Ratio 5.81 % 03/26/19 12:27 Vitamin B12 531.4 pg/mL (211-911) 03/26/19 12:27 Folate 14.10 ng/mL (7.3-26.0) 03/26/19 12:27 Urine Color Fay (Yellow) 03/26/19 Unknown Urine Turbidity Slightly-cloudy (Clear) 03/26/19 Unknown Urine pH 5.0 (5.0-7.0) 03/26/19 Unknown Ur Specific [place] 1.026 (1.003-1.030) 03/26/19 Unknown Urine Protein <15 mg/dl mg/dL (Negative) 03/26/19 Unknown Urine Glucose (UA) Neg mg/dL (Negative) 03/26/19 Unknown Urine Ketones 20 mg/dL (Negative) 03/26/19 Unknown Urine Blood Neg (Negative) 03/26/19 Unknown Urine Nitrite Neg (Negative) 03/26/19 Unknown Urine Bilirubin Neg (Negative) 03/26/19 Unknown Urine Urobilinogen 4.0 mg/dL (<2.0) 03/26/19 Unknown Ur Leukocyte Esterase Tr (Negative) 03/26/19 Unknown Urine WBC (Auto) 9.0 /HPF (0.0-6.0) H 03/26/19 Unknown Urine RBC (Auto) 3.0 /HPF (0.0-6.0) 03/26/19 Unknown U Epithel Cells (Auto) < 1.0 /HPF (0-13.0) 03/26/19 Unknown Urine Bacteria (Auto) 1+ /HPF (Negative) 03/26/19 Unknown Hyaline Casts 1 /LPF 03/26/19 Unknown Urine Mucus 1+ /HPF 03/26/19 Unknown Urine Eosinophils None seen (None Seen) 03/26/19 Unknown Urine Creatinine 315.6 mg/dL (0.1-20.0) H 03/26/19 Unknown Urine Sodium 56 mmol/L 03/26/19 Unknown Fraction Sodium Excret 0.0 03/26/19 Unknown Active Medications - Current Medications Current Medications: Generic Name Dose Route Start Last Admin Trade Name Freq PRN Reason Stop Dose Admin Acetaminophen 650 mg 03/25/19 23:04 Tylenol PO Q4H PRN Pain MILD(1-3)/Fever >100.5/[place] Famotidine 20 mg 03/25/19 23:45 03/27/19 09:20 Pepcid PO 20 mg BID [facility] Administration Hydromorphone HCl 0.25 mg 03/25/19 23:05 Dilaudid IV Q3H PRN Pain, Moderate (4-6) Sodium Chloride 1,000 mls @ 75 mls/hr 03/26/19 13:00 03/27/19 05:09 Nacl 0.45% 1000 Ml IV 75 mls/hr DIRECT [facility] Administration Levofloxacin 500 mg 03/27/19 13:00 Levaquin PO Q24HR [facility] Metoclopramide HCl 10 mg 03/25/19 23:05 Reglan IV Q6H PRN Nausea And Vomiting Ondansetron HCl 4 mg 03/25/19 23:04 Zofran IV Q8H PRN Nausea And Vomiting Oxycodone/Acetaminophen 1 tab 03/25/19 23:05 03/26/19 21:08 Percocet 5/325 PO 1 tab Q6H PRN Administration Pain, Moderate (4-6) Sodium Bicarbonate 650 mg 03/27/19 22:00 Sodium Bicarbonate PO BID [facility] Sodium Chloride 10 ml 03/26/19 10:00 03/27/19 09:20 Sodium Chloride Flush Syringe 10 Ml IV 10 ml BID [place] Administration Sodium Chloride 10 ml 03/25/19 23:04 Sodium Chloride Flush Syringe 10 Ml IV PRN PRN LINE FLUSH Tamsulosin HCl 0.4 mg 03/28/19 10:00 Flomax PO QDAY [facility] Nutrition/Malnutrition Assess - Dietary Evaluation Nutrition/Malnutrition Findings: Nutrition Notes Start: 03/26/19 12:21 Freq: Status: Active Protocol: Document 03/26/19 12:21 LP (Rec: 03/26/19 12:26 LP [id number]) Nutrition Notes Need for Assessment generated from: MD Order Initial or Follow up Assessment Current Diagnosis Diabetes,Hypertension,Stroke Other Pertinent Diagnosis Dysphagia Current Diet Cardiac Labs/Tests Reviewed Pertinent Medications NS at 75ml/hr Height 5 ft 9 in Weight 65.77 kg [place] Body Weight (kg) 72.72 BMI 21.4 Subjective/Other Information Consult for diet supplement. Pt not in room at time of visit. Burn Absent Trauma Absent Minimum of two criteria No #1 Nutrition Diagnosis Predicted suboptimal energy intake Etiology Advanced age and previous CVA As Evidenced by Signs and Symptoms Pt not in room and MD order for supplement Is patient on ventilator? No Is Patient Ambulatory and/or Out of Bed No REE-([facility]-confined to bed) 3603.963 Calculation Used for Recommendations [facility] Additional Notes Protein needs are 66-79g (1-1. 2g/kg) Fluid needs are 1ml/kcal Nutrition Intervention Change Diet Order: Mechanical soft cardiac per MD Add Supplement/Snack (indicate name/kcal Ensure Enlive BID /protein ) Provides kCal: 700 Provides Protein (gm) 40 Goal #1 Meet at least 80% of kcal and protein needs meals and ONS Anticipated Discharge Needs: Unable to determine at this time Follow-Up By: 03/28/19 Additional Comments Follow for intakes and ONS tolerance
[2019-03-27] MEDS: levoFLOXacin 500 MG TAB PO SCH (13:48)
[2019-03-27] MEDS: SODIUM BICARBONATE 650 MG TAB PO SCH (21:34)
[2019-03-28] MEDS: SODIUM CHLORIDE 0.45% 1000 ML 1,000 ML IV SCH ×2 (00:35→21:24)
[2019-03-28 08:22] LABS: BUN/Creatinine Ratio 18; Blood Urea Nitrogen 14 mg/dL (9-20); Hemolysis Index 0
--- NOTE | 2019-03-28 10:21 | Progress Note ---
Assessment and Plan - Patient Problems (1) Acidosis Current Visit: Yes Status: Acute Plan to address problem: Acidosis improving sodium bicarbonate was added (2) HTN (hypertension) Current Visit: Yes Status: Chronic Qualifiers: Hypertension type: essential hypertension Qualified Code(s): I10 - Essential (primary) hypertension Plan to address problem: Hypertension uncontrolled Continue medications (3) Acute kidney injury Current Visit: Yes Status: Acute Plan to address problem: Acute kidney injury resolved Reviewed ultrasound normal-sized kidneys with large prostate and noted Flomax was added Avoid nephrotoxins (4) BPH (benign prostatic hyperplasia) Current Visit: Yes Status: Acute Plan to address problem: Enlarged prostrate ultrasound Flomax was added We will sign off Thank you for allowing us to participate in his care Subjective Interval history: 68-year-old gentleman with BPH, previous CVA, hypertension acute kidney injury nephrology following following for same Patient's seen today feels well Objective - Vital Signs Vital signs: Vital Signs - 12hr 03/28/19 03/28/19 03/28/19 00:00 03:27 06:58 Temperature 98.2 F 98.2 F Pulse Rate 63 63 55 L Respiratory 18 18 Rate Blood Pressure 153/86 Blood Pressure 159/81 [Left] O2 Sat by Pulse 100 99 Oximetry 03/28/19 03/28/19 03/28/19 08:00 08:42 08:45 Temperature Pulse Rate 46 L 53 L Respiratory 14 Rate Blood Pressure 142/83 Blood Pressure [Left] O2 Sat by Pulse 99 95 Oximetry - General Appearance General appearance: well-developed, well-nourished EENT: ATNC, PERRL Neck: no JVD Respiratory: Present: Clear to Ascultation Cardiology: regular, S1S2 Gastrointestinal: normal, normoactive bowel sounds Integumentary: no rash Neurologic: alert and oriented x3, facial droop Psychiatric: mood/affect appropriate - Lab 03/26/19 12:27 03/28/19 07:33 Most recent lab results Calcium 9.0 mg/dL (8.4-10.2) 03/28/19 07:33 Urine Creatinine 315.6 mg/dL (0.1-20.0) H 03/26/19 Unknown Urine Sodium 56 mmol/L 03/26/19 Unknown - Imaging Kidney/bladder ultrasound: image reviewed (review the ultrasound normal-sized kidneys and no hydronephrosis bladder wall thickness noted) Medications & Allergies - Medications Allergies/Adverse Reactions: Allergies No Known Allergies Allergy (Unverified 03/25/19 09:44) Active Medications: Generic Name Dose Route Start Last Admin Trade Name Freq PRN Reason Stop Dose Admin Acetaminophen 650 mg 03/25/19 23:04 Tylenol PO Q4H PRN Pain MILD(1-3)/Fever >100.5/[place] Famotidine 20 mg 03/25/19 23:45 03/27/19 21:34 Pepcid PO 20 mg BID [facility]I Administration Hydromorphone HCl 0.25 mg 03/25/19 23:05 Dilaudid IV Q3H PRN Pain, Moderate (4-6) Sodium Chloride 1,000 mls @ 75 mls/hr 03/26/19 13:00 03/28/19 00:35 Nacl 0.45% 1000 Ml IV 75 mls/hr DIRECT CIT[facility]ALLI Administration Levofloxacin 500 mg 03/27/19 13:00 03/27/19 13:48 Levaquin PO 500 mg Q24HR [facility]I Administration Metoclopramide HCl 10 mg 03/25/19 23:05 Reglan IV Q6H PRN Nausea And Vomiting Ondansetron HCl 4 mg 03/25/19 23:04 Zofran IV Q8H PRN Nausea And Vomiting Oxycodone/Acetaminophen 1 tab 03/25/19 23:05 03/26/19 21:08 Percocet 5/325 PO 1 tab Q6H PRN Administration Pain, Moderate (4-6) Sodium Bicarbonate 650 mg 03/27/19 22:00 03/27/19 21:34 Sodium Bicarbonate PO 650 mg BID CITLALLI Administration Sodium Chloride 10 ml 03/26/19 10:00 03/27/19 21:34 Sodium Chloride Flush Syringe 10 Ml IV 10 ml BID [place] Administration Sodium Chloride 10 ml 03/25/19 23:04 Sodium Chloride Flush Syringe 10 Ml IV PRN PRN LINE FLUSH Tamsulosin HCl 0.4 mg 03/28/19 10:00 Flomax PO QDAY CITLALLI
[2019-03-28] MEDS: TAMSULOSIN 0.4 MG CAP PO SCH (10:38)
[2019-03-28] MEDS: SODIUM BICARBONATE 650 MG TAB PO SCH ×3 (10:38→21:19)
[2019-03-28] MEDS: levoFLOXacin 500 MG TAB PO SCH (10:38)
[2019-03-28] MEDS: FAMOTIDINE 20 MG TAB PO SCH ×3 (10:38→21:19)
--- NOTE | 2019-03-28 13:13 | Gastroenterology Consultation ---
<DC KAMARA - Last Filed: 03/28/19 13:19> History of Present Illness - Reason for Consult Consult date: 03/28/19 dysphagia Requesting physician: ZORAIDA DRUMMOND - History of Present Illness Patient is a 68 y/o male with PMH HTN, DM, and CVA on whom GI has been consulted for evaluation of dysphagia. This afternoon patient was resting in bed w/o acute distress. Reports difficulty swallowing solids for the last couple of months. Tolerating liquids. Unclear if there has been associated wt loss. Denies abd pain, N/V, or odynophagia. No previous EGD. Past History Past Medical History: other (see HPI) Past Surgical History: No surgical history Social history: smoking Medications and Allergies Allergies Allergy/AdvReac Type Severity Reaction Status Date / Time No Known Allergies Allergy Unverified 03/25/19 09:44 Active Meds: Active Medications Acetaminophen (Tylenol) 650 mg PO Q4H PRN PRN Reason: Pain MILD(1-3)/Fever >100.5/[place] Famotidine (Pepcid) 20 mg PO BID [facility] Last Admin: 03/28/19 10:45 Dose: Not Given Documented by: Hydromorphone HCl (Dilaudid) 0.25 mg IV Q3H PRN PRN Reason: Pain, Moderate (4-6) Sodium Chloride (Nacl 0.45% 1000 Ml) 1,000 mls @ 75 mls/hr IV DIRECT [facility] Last Admin: 03/28/19 00:35 Dose: 75 mls/hr Documented by: Levofloxacin (Levaquin) 500 mg PO Q24HR [facility] Stop: 03/31/19 10:01 Last Admin: 03/28/19 10:38 Dose: 500 mg Documented by: Metoclopramide HCl (Reglan) 10 mg IV Q6H PRN PRN Reason: Nausea And Vomiting Ondansetron HCl (Zofran) 4 mg IV Q8H PRN PRN Reason: Nausea And Vomiting Oxycodone/Acetaminophen (Percocet 5/325) 1 tab PO Q6H PRN PRN Reason: Pain, Moderate (4-6) Last Admin: 03/26/19 21:08 Dose: 1 tab Documented by: Sodium Bicarbonate (Sodium Bicarbonate) 650 mg PO BID [facility] Last Admin: 03/28/19 10:44 Dose: Not Given Documented by: Sodium Chloride (Sodium Chloride Flush Syringe 10 Ml) 10 ml IV BID [facility] Last Admin: 03/27/19 21:34 Dose: 10 ml Documented by: Sodium Chloride (Sodium Chloride Flush Syringe 10 Ml) 10 ml IV PRN PRN PRN Reason: LINE FLUSH Tamsulosin HCl (Flomax) 0.4 mg PO QDAY [facility] Last Admin: 03/28/19 10:38 Dose: 0.4 mg Documented by: medications reviewed/updated as required Review of Systems - Review of Systems All systems: negative Gastrointestinal: other (dysphagia) Exam - Constitutional Vital Signs: Temp Pulse Resp BP Pulse Ox 98.2 F 53 L 14 142/83 95 03/28/19 06:58 03/28/19 08:42 03/28/19 08:42 03/28/19 08:42 03/28/19 08:45 General appearance: no acute distress - EENT Eyes: PERRL, EOM intact ENT: hearing intact - Respiratory Respiratory effort: normal - Cardiovascular Rhythm: regular - Gastrointestinal General gastrointestinal: Present: soft, non-tender, non-distended, normal bowel sounds - Integumentary Integumentary: Present: warm, dry - Neurologic Neurological: oriented to person, oriented to place, generalized weakness, left side weakness - Labs CBC & Chem 7: 03/26/19 12:27 03/28/19 07:33 Lab Results: Laboratory Results - last 24 hr 03/28/19 07:33 Sodium 141 Potassium 3.6 Chloride 106.8 Carbon Dioxide 21 L Anion Gap 17 BUN 14 Creatinine 0.8 Estimated GFR > 60 BUN/Creatinine Ratio 18 Glucose 95 Calcium 9.0 Assessment and Plan 1.dysphagia -esophagram for further evaluation -consider EGD based on results -diet per speech recommendations -continue supportive care -will follow 2.CVA 3.HTN 4.DM <DAYNA JUSTICE - Last Filed: 03/28/19 19:59> Medications and Allergies Active Meds: Active Medications Acetaminophen (Tylenol) 650 mg PO Q4H PRN PRN Reason: Pain MILD(1-3)/Fever >100.5/[place] Atorvastatin Calcium (Lipitor) 40 mg PO QHS [facility] Famotidine (Pepcid) 20 mg PO BID [facility] Last Admin: 03/28/19 10:45 Dose: Not Given Documented by: Hydromorphone HCl (Dilaudid) 0.25 mg IV Q3H PRN PRN Reason: Pain, Moderate (4-6) Sodium Chloride (Nacl 0.45% 1000 Ml) 1,000 mls @ 75 mls/hr IV DIRECT [facility] Last Admin: 03/28/19 00:35 Dose: 75 mls/hr Documented by: Levofloxacin (Levaquin) 500 mg PO Q24HR [facility] Stop: 03/31/19 10:01 Last Admin: 03/28/19 10:38 Dose: 500 mg Documented by: Metoclopramide HCl (Reglan) 10 mg IV Q6H PRN PRN Reason: Nausea And Vomiting Ondansetron HCl (Zofran) 4 mg IV Q8H PRN PRN Reason: Nausea And Vomiting Oxycodone/Acetaminophen (Percocet 5/325) 1 tab PO Q6H PRN PRN Reason: Pain, Moderate (4-6) Last Admin: 03/26/19 21:08 Dose: 1 tab Documented by: Sodium Bicarbonate (Sodium Bicarbonate) 650 mg PO BID [facility] Last Admin: 03/28/19 10:44 Dose: Not Given Documented by: Sodium Chloride (Sodium Chloride Flush Syringe 10 Ml) 10 ml IV BID [facility] Last Admin: 03/27/19 21:34 Dose: 10 ml Documented by: Sodium Chloride (Sodium Chloride Flush Syringe 10 Ml) 10 ml IV PRN PRN PRN Reason: LINE FLUSH Tamsulosin HCl (Flomax) 0.4 mg PO QDAY [facility] Last Admin: 03/28/19 10:38 Dose: 0.4 mg Documented by: Exam - Constitutional Vital Signs: Temp Pulse Resp BP Pulse Ox 98.2 F 68 14 142/83 96 03/28/19 06:58 03/28/19 16:00 03/28/19 08:42 03/28/19 08:42 03/28/19 11:00 - Labs CBC & Chem 7: 03/26/19 12:27 03/28/19 19:10 Lab Results: Laboratory Results - last 24 hr 03/28/19 03/28/19 07:33 19:10 Sodium 141 138 Potassium 3.6 3.8 Chloride 106.8 104.5 Carbon Dioxide 21 L 20 L Anion Gap 17 17 BUN 14 16 Creatinine 0.8 0.8 Estimated GFR > 60 > 60 BUN/Creatinine Ratio 18 20 Glucose 95 155 H Calcium 9.0 8.9 Assessment and Plan Patient seen and examined. agree with note above.
--- NOTE | 2019-03-28 17:58 | Progress Note ---
Assessment and Plan Assessment and plan: 68-year-old male presenting with a chief complaint of Rt lower extremity weakness and slurred speech. Family states the patient has been dragging his right lower extremity and has slurred speech for the past 7 days. Family states over the past 4 days the patient has exhibited difficulty swallowing and has not been able to keep any food down. When asked how he is feeling the patient replies "I don't feel good." The patient fell several days ago and went to his primary physician's office where x-rays were performed (no fractures seen). MRI brain: IMPRESSION: 1. Limited MRI scan due to motion related artifacts Streaky subacute ischemic area in the right cerebellar; multiple chronic streaky ischemic changes in both cerebellar hemispheres Confluent periventricular and deep hemispheric white matter lesions in both cerebral hemispheres due to microvascular faint angiopathy. Renal US: IMPRESSION 1. No acute sonographic abnormality of the kidneys. Enlarged prostate with thickened bladder wall suggesting outlet obstruction. - Patient Problems (1) Left-sided muscle weakness Current Visit: Yes Status: Acute Plan to address problem: Left-sided muscle weakness has improved significantly. Patient attempted to eat meals. I think most likely secondary to dehydration having watershed effect or previous CVA. Patient is moving hydrated feels good and alert. I think we'll perform physical therapy on Thursday to assess patient's needs whether physical. Inpatient rehabilitation. Appears to be a candidate for physical therapy at home. Important note however patient was living at home by himself. Family at bedside states this is most likely what he may be going back to. She was getting around with a walker prior to admission. (2) CVA (cerebral vascular accident) Current Visit: Yes Status: Acute Qualifiers: Laterality of affected vessel: left Plan to address problem: Patient appears to have had multiple subacute or old CVAs. I think this is the most likely etiology for his cognitive decline and debility. Home therapy versus retirement facility. (3) HTN (hypertension) Current Visit: Yes Status: Chronic Qualifiers: Hypertension type: essential hypertension Qualified Code(s): I10 - Essential (primary) hypertension Plan to address problem: Patient continues to have fair control of blood pressure. 135/76. We'll start patient on amlodipine if BP is high. We'll add low-dose calcium channel natalie. Patient is somewhat bradycardic therefore will hold beta natalie at this time. (4) T2DM (type 2 diabetes mellitus) Current Visit: Yes Status: Chronic Qualifiers: Diabetes mellitus termination clerk insulin use: without nursing home use Plan to address problem: Excellent control A1c is 5.7. (5) Dysphagia Current Visit: Yes Status: Acute Qualifiers: Dysphagia type: oral phase Qualified Code(s): R13.11 - Dysphagia, oral phase Plan to address problem: Swallow screen and MBS if necessary -esophagram for further evaluation -consider EGD based on results -diet per speech recommendation DVT/GI prophy History Interval history: Patient seen and examined, No acute distress at this time, family at bedside. Still dysphagia, and mild expressive aphasia ?Chronicity. otherwise He is more alert able to move all extremities. Minimal cognitive impairment but this is at baseline and family at bedside. Hospitalist Physical - Physical exam Narrative exam: General appearance: Present: no acute distress, well-nourished, disheveled - EENT Eyes: Present: PERRL, EOM intact ENT: hearing intact, clear oral mucosa, poor dentition, Missing dentition, no oropharyngeal erythema, no thrush, no ulcerations - Neck Neck: Present: supple, normal ROM - Respiratory Respiratory effort: normal Respiratory: bilateral: rales (base) - Cardiovascular Rhythm: regular - Extremities Extremities: no ischemia, pulses intact, pulses symmetrical, No edema, normal temperature, normal color Peripheral Pulses: within normal limits - Abdominal General gastrointestinal: soft, non-tender, non-distended, normal bowel sounds, no hepatomegaly, no splenomegaly - Integumentary Integumentary: Present: clear, warm, dry - Psychiatric Psychiatric: appropriate mood/affect, intact judgment & insight, memory intact - Neurologic Neurologic: CNII-XII intact, moves all extremities, other (cognitive impairment.) - Constitutional Vitals: Temp Pulse Resp BP Pulse Ox 98.2 F 68 14 142/83 96 03/28/19 06:58 03/28/19 16:00 03/28/19 08:42 03/28/19 08:42 03/28/19 11:00 General appearance: Present: no acute distress, well-nourished, disheveled Results - Labs CBC & Chem 7: 03/26/19 12:27 03/28/19 07:33 Labs: Laboratory Last Values WBC 5.3 K/mm3 (4.5-11.0) 03/26/19 12:27 RBC 4.58 M/mm3 (3.65-5.03) 03/26/19 12:27 Hgb 13.6 gm/dl (11.8-15.2) 03/26/19 12:27 Hct 40.6 % (35.5-45.6) 03/26/19 12:27 MCV 89 fl (84-94) 03/26/19 12:27 MCH 30 pg (28-32) 03/26/19 12:27 MCHC 33 % (32-34) 03/26/19 12:27 RDW 13.5 % (13.2-15.2) 03/26/19 12:27 Plt Count 228 K/mm3 (140-440) 03/26/19 12:27 Lymph % (Auto) 54.6 % (13.4-35.0) H 03/26/19 12:27 [place] % (Auto) 4.6 % (0.0-7.3) 03/26/19 12:27 Eos % (Auto) 1.1 % (0.0-4.3) 03/26/19 12:27 Baso % (Auto) 0.6 % (0.0-1.8) 03/26/19 12: Lymph # 2.9 K/mm3 (1.2-5.4) 03/26/19 12:27 [place]oun # 0.2 K/mm3 (0.0-0.8) 03/26/19 12:27 Eos # 0.1 K/mm3 (0.0-0.4) 03/26/19 12:27 Baso # 0.0 K/mm3 (0.0-0.1) 03/26/19 12:27 Seg Neutrophils % 39.1 % (40.0-70.0) L 03/26/19 12:27 Seg Neutrophils # 2.1 K/mm3 (1.8-7.7) 03/26/19 12:27 PT 14.6 Sec. (12.2-14.9) 03/25/19 10:31 INR 1.15 (0.87-1.13) H 03/25/19 10:31 APTT 26.4 Sec. (24.2-36.6) 03/25/19 10:31 Thrombin Time 18.9 Sec. (15.1-19.6) 03/25/19 10:31 Sodium 141 mmol/L (137-145) 03/28/19 07:33 Potassium 3.6 mmol/L (3.6-5.0) 03/28/19 07:33 Chloride 106.8 mmol/L (98-107) 03/28/19 07:33 Carbon Dioxide 21 mmol/L (22-30) L 03/28/19 07:33 Anion Gap 17 mmol/L 03/28/19 07:33 BUN 14 mg/dL (9-20) 03/28/19 07:33 Creatinine 0.8 mg/dL (0.8-1.5) 03/28/19 07:33 Estimated GFR > 60 ml/min 03/28/19 07:33 BUN/Creatinine Ratio 18 % 03/28/19 07:33 Glucose 95 mg/dL (75-100) 03/28/19 07:33 POC Glucose 149 (70-105) H 03/26/19 22:11 Hemoglobin A1c 5.7 % (4-6) 03/25/19 23:24 Calcium 9.0 mg/dL (8.4-10.2) 03/28/19 07:33 Total Bilirubin 0.90 mg/dL (0.1-1.2) 03/26/19 12:27 AST 51 units/L (5-40) H 03/26/19 12:27 ALT 50 units/L (7-56) 03/26/19 12:27 Alkaline Phosphatase 57 units/L (35-129) 03/26/19 12:27 Total Creatine Kinase 117 units/L (55-170) 03/26/19 12:27 CK-MB (CK-2) 4.0 ng/mL (0.0-4.0) 03/25/19 10:31 CK-MB (CK-2) Rel Index 2.7 (0-4) 03/25/19 10:31 Troponin T 0.025 ng/mL (0.00-0.029) 03/25/19 10:31 Total Protein 7.9 g/dL (6.3-8.2) 03/26/19 12:27 Albumin 3.7 g/dL (3.9-5) L 03/26/19 12:27 Albumin/Globulin Ratio 0.9 % 03/26/19 12:27 Triglycerides 116 mg/dL (2-149) 03/26/19 12:27 Cholesterol 157 mg/dL (50-199) 03/26/19 12:27 LDL Cholesterol Direct 117 mg/dL (50-130) 03/26/19 12:27 HDL Cholesterol 27 mg/dL (40-59) L 03/26/19 12:27 Cholesterol/HDL Ratio 5.81 % 03/26/19 12:27 Vitamin B12 531.4 pg/mL (211-911) 03/26/19 12:27 Folate 14.10 ng/mL (7.3-26.0) 03/26/19 12:27 Urine Color Fay (Yellow) 03/26/19 Unknown Urine Turbidity Slightly-cloudy (Clear) 03/26/19 Unknown Urine pH 5.0 (5.0-7.0) 03/26/19 Unknown Ur Specific B[place] 1.026 (1.003-1.030) 03/26/19 Unknown Urine Protein <15 mg/dl mg/dL (Negative) 03/26/19 Unknown Urine Glucose (UA) Neg mg/dL (Negative) 03/26/19 Unknown Urine Ketones 20 mg/dL (Negative) 03/26/19 Unknown Urine Blood Neg (Negative) 03/26/19 Unknown Urine Nitrite Neg (Negative) 03/26/19 Unknown Urine Bilirubin Neg (Negative) 03/26/19 Unknown Urine Urobilinogen 4.0 mg/dL (<2.0) 03/26/19 Unknown Ur Leukocyte Esterase Tr (Negative) 03/26/19 Unknown Urine WBC (Auto) 9.0 /HPF (0.0-6.0) H 03/26/19 Unknown Urine RBC (Auto) 3.0 /HPF (0.0-6.0) 03/26/19 Unknown U Epithel Cells (Auto) < 1.0 /HPF (0-13.0) 03/26/19 Unknown Urine Bacteria (Auto) 1+ /HPF (Negative) 03/26/19 Unknown Hyaline Casts 1 /LPF 03/26/19 Unknown Urine Mucus 1+ /HPF 03/26/19 Unknown Urine Eosinophils None seen (None Seen) 03/26/19 Unknown Urine Creatinine 315.6 mg/dL (0.1-20.0) H 03/26/19 Unknown Urine Sodium 56 mmol/L 03/26/19 Unknown Fraction Sodium Excret 0.0 03/26/19 Unknown Active Medications - Current Medications Current Medications: Generic Name Dose Route Start Last Admin Trade Name Freq PRN Reason Stop Dose Admin Acetaminophen 650 mg 03/25/19 23:04 Tylenol PO Q4H PRN Pain MILD(1-3)/Fever >100.5/[place] Atorvastatin Calcium 40 mg 03/28/19 22:00 Lipitor PO QHS CITLALLI Famotidine 20 mg 03/25/19 23:45 03/28/19 10:45 Pepcid PO Not Given BID CITLALLI Hydromorphone HCl 0.25 mg 03/25/19 23:05 Dilaudid IV Q3H PRN Pain, Moderate (4-6) Sodium Chloride 1,000 mls @ 75 mls/hr 03/26/19 13:00 03/28/19 00:35 Nacl 0.45% 1000 Ml IV 75 mls/hr DIRECT CITLALLI Administration Levofloxacin 500 mg 03/27/19 13:00 03/28/19 10:38 Levaquin PO 03/31/19 10:01 500 mg Q24HR CITLALLI Administration Metoclopramide HCl 10 mg 03/25/19 23:05 Reglan IV Q6H PRN Nausea And Vomiting Ondansetron HCl 4 mg 03/25/19 23:04 Zofran IV Q8H PRN Nausea And Vomiting Oxycodone/Acetaminophen 1 tab 03/25/19 23:05 03/26/19 21:08 Percocet 5/325 PO 1 tab Q6H PRN Administration Pain, Moderate (4-6) Sodium Bicarbonate 650 mg 03/27/19 22:00 03/28/19 10:44 Sodium Bicarbonate PO Not Given BID CITLALLI Sodium Chloride 10 ml 03/26/19 10:00 03/27/19 21:34 Sodium Chloride Flush Syringe 10 Ml IV 10 ml BID CITLALLI Administration Sodium Chloride 10 ml 03/25/19 23:04 Sodium Chloride Flush Syringe 10 Ml IV PRN PRN LINE FLUSH Tamsulosin HCl 0.4 mg 03/28/19 10:00 03/28/19 10:38 Flomax PO 0.4 mg QDAY CITLALLI Administration Nutrition/Malnutrition Assess - Dietary Evaluation Nutrition/Malnutrition Findings: Nutrition Notes Start: 03/26/19 12:21 Freq: Status: Active Protocol: Document 03/28/19 13:51 OH (Rec: 03/28/19 14:04 OH [id number]) Nutrition Notes Initial or Follow up Reassessment Current Diagnosis Diabetes,Hypertension,Stroke Other Pertinent Diagnosis Dysphagia Current Diet Cardiac w/ mechanical soft Labs/Tests Reviewed Height 5 ft 9 in Weight 68.5 kg [place] Body Weight (kg) 72.72 BMI 22.3 Subjective/Other Information Pt. lying in bed. Pt. requests boiled eggs vs scrambled eggs for breakfast. Pt. likes the Ensure and RD to write for TID vs BID. Pt. using walker WINE SALES REPRESENTATIVE. Pt. continues to have difficulty being understood when speaking and dysphagia. MEDICAL RECORDS LIBRARY PROFESSOR has seen pt and indicated he would benefit from MEDICAL RECORDS LIBRARY PROFESSOR services but no specific dietary recommendation ordered . Will monitor for recommendations. Cont mech soft per MD order. Per GI, pt to have EGD/ESOPHAGRAM completed 03/29/19. Percent of energy/protein needs met: <50/50% Burn Absent Trauma Absent GI Symptoms None Current % PO Poor (25-49%) Minimum of two criteria No #1 Nutrition Diagnosis Predicted suboptimal energy intake Etiology Advanced age and previous CVA Is patient on ventilator? No Is Patient Ambulatory and/or Out of Bed No REE-([facility]-confined to bed) 1728.348 Kcal/Kg value to use for calculation 30 Approximate Energy Requirements Using 2055 kcal/Kg Calculation Used for Recommendations [facility] Additional Notes Protein needs are 66-79g (1-1. 2g/kg) Fluid needs are 1ml/kcal Nutrition Intervention Change Diet Order: CONT Mechanical soft cardiac per MD Add Supplement/Snack (indicate name/kcal ENSURE ENLIVE TID /protein ) Provides kCal: 1,050 Provides Protein (gm) 60 Goal #1 Meet at least 80% of kcal and protein needs meals and ONS Follow-Up By: 03/29/19 Additional Comments Follow for intakes and ONS tolerance/DIET MODIFICATION - Malnutrition Assessment Minimum of two criteria: Yes - Attestation Statement I have reviewed and agreed w/ Malnutrition eval & tx plan: Yes
[2019-03-28 19:51] LABS: BUN/Creatinine Ratio 20; Blood Urea Nitrogen 16 mg/dL (9-20); Calcium 8.9 mg/dL (8.4-10.2); Hemolysis Index 10
--- NOTE | 2019-03-29 08:12 | Vascular Lab Report ---
Bilateral Carotid Doppler Ultrasound INDICATION : stroke TECHNIQUE: Grayscale and color Doppler imaging performed through the neck. COMPARISON: None FINDINGS: Right: There is mild atherosclerotic disease in the carotid bulb. Peak systolic velocity in the CCA is 82 cm/s with end-diastolic velocity of 14 cm/s. Peak systolic velocity in the proximal ICA is 83 cm/s with end-diastolic velocity of 23 cm/s. ICA to CCA ratio is less than 2. There is antegrade luzma w in the ECA and the vertebral artery. Left: There is mild arthritic disease in the carotid bulb. Peak systolic velocity in the CCA is 69 cm /s with end-diastolic velocity of 12 cm/s. Peak systolic velocity in the proximal ICA is 60 cm/s with end-diastolic velocity of 18 cm/s. ICA to CCA ratio is less than 2. There is antegrade flow in the ECA and the vertebral artery. IMPRESSION: No hemodynamically significant stenosis by NASCET criteria. Signer Name: Faheem Fitch MD Signed: 03/29/2019 8:08 AM Workstation Name: [id number]
--- NOTE | 2019-03-29 08:40 | Fluoroscopy Report ---
Limited single contrast barium swallow Indication: dysphagia. Question of a recent stroke. Patient had very limited mobility and was unabl e to stand during the exam. Technique: Single contrast barium technique utilized to evaluate the esophagus. Findings: To begin the exam, the patient was placed supine and tilted to approximately 45 degrees as tolerated. Single contrast technique was then used because the patient had limited mobility. No mucosal irregularity, mass, mass effect, or critical stenosis. There were abnormal tertiary cont ractions as seen with dysmotility. There was also mild gastroesophageal reflux reaching the distal on e third of the esophagus. Impression: Mild esophageal dysmotility and gastroesophageal reflux on this limited exam. Fluoroscopic time: 1.1 minutes Number of fluoroscopic images: 11 Signer Name: Faheem Fitch MD Signed: 03/29/2019 8:36 AM Workstation Name: [id number]
[2019-03-29] MEDS: SODIUM BICARBONATE 650 MG TAB PO SCH ×2 (09:50→21:37)
[2019-03-29] MEDS: TAMSULOSIN 0.4 MG CAP PO SCH (09:50)
[2019-03-29] MEDS: levoFLOXacin 500 MG TAB PO SCH (09:50)
[2019-03-29] MEDS: FAMOTIDINE 20 MG TAB PO SCH ×2 (09:50→21:37)
--- NOTE | 2019-03-29 11:26 | Gastroenterology Progress Note ---
<DC KAMARA - Last Filed: 03/29/19 11:19> Assessment and Plan 1.dysphagia -etiology-likely 2/2 CVA -esophagram showed dysmotility and reflux but no mass, critical stenosis, or mucosal irregularity -clinically, patient is currently tolerating diet. Denies abd pain or N/V. -no plan for EGD at this time -recommend MULTIMEDIA DESIGNER evaluation to determine if patient is safe for diet and if able to meet nutritional needs with PO (if not may need to consider PEG based on progress) -start on PPI -continue supportive care -will follow 2.CVA 3.HTN 4.DM Subjective Date of service: 03/29/19 Principal diagnosis: dysphagia Interval history: No acute distress. Denies abd pain or N/V. Tolerating diet. Objective - Constitutional Vitals: Temp Pulse Resp BP Pulse Ox 98.1 F 54 L 18 166/87 98 03/29/19 03:46 03/29/19 08:00 03/29/19 03:46 03/29/19 03:46 03/29/19 03:46 General appearance: no acute distress - EENT Eyes: PERRL, EOM intact ENT: hearing intact - Respiratory Respiratory effort: normal - Cardiovascular Rhythm: regular - Gastrointestinal General gastrointestinal: Present: soft, non-tender, non-distended, normal bowel sounds - Neurologic Neurological: alert and oriented x3, generalized weakness, left side weakness - Labs CBC & Chem 7: 03/26/19 12:27 03/28/19 19:10 Labs: Laboratory Results - last 24 hr 03/28/19 19:10 Sodium 138 Potassium 3.8 Chloride 104.5 Carbon Dioxide 20 L Anion Gap 17 BUN 16 Creatinine 0.8 Estimated GFR > 60 BUN/Creatinine Ratio 20 Glucose 155 H Calcium 8.9 <DAYNA JUSTICE - Last Filed: 03/29/19 19:19> Assessment and Plan Pt seen and examined; agree with not above; f/u speech therapy recommendations Objective - Constitutional Vitals: Temp Pulse Resp BP Pulse Ox 98.2 F 54 L 18 161/75 89 03/29/19 16:33 03/29/19 11:42 03/29/19 16:33 03/29/19 16:33 03/29/19 11:42 - Labs CBC & Chem 7: 03/26/19 12:27 03/28/19 19:10 Labs: Laboratory Results - last 24 hr 03/28/19 19:10 Sodium 138 Potassium 3.8 Chloride 104.5 Carbon Dioxide 20 L Anion Gap 17 BUN 16 Creatinine 0.8 Estimated GFR > 60 BUN/Creatinine Ratio 20 Glucose 155 H Calcium 8.9
[2019-03-29] MEDS: PANTOPRAZOLE 40 MG TAB PO SCH (12:44)
--- NOTE | 2019-03-29 12:52 | Progress Note ---
Assessment and Plan Assessment and plan: 68-year-old male presenting with a chief complaint of Rt lower extremity weakness and slurred speech. Family states the patient has been dragging his right lower extremity and has slurred speech for the past 7 days. Family states over the past 4 days the patient has exhibited difficulty swallowing and has not been able to keep any food down. When asked how he is feeling the patient replies "I don't feel good." The patient fell several days ago and went to his primary physician's office where x-rays were performed (no fractures seen). MRI brain: IMPRESSION: 1. Limited MRI scan due to motion related artifacts Streaky subacute ischemic area in the right cerebellar; multiple chronic streaky ischemic changes in both cerebellar hemispheres Confluent periventricular and deep hemispheric white matter lesions in both cerebral hemispheres due to microvascular faint angiopathy. Renal US: IMPRESSION 1. No acute sonographic abnormality of the kidneys. Enlarged prostate with thickened bladder wall suggesting outlet obstruction. - Patient Problems Left-sided muscle weakness Left-sided muscle weakness has improved significantly. Patient attempted to eat meals. I think most likely secondary to dehydration having watershed effect or previous CVA. Patient is moving hydrated feels good and alert. I think we'll perform physical therapy on Thursday to assess patient's needs whether physical. 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 I think this is the most likely etiology for his cognitive decline and debility. PT recommends acute rehab Hypertensive urgency Add Norvasc Beta natalie on hold sinus bradycardia beta natalie on hold Type 2 diabetes mellitus Excellent control A1c is 5.7. Dysphagia Swallow screen and MBS if necessary -esophagram for further evaluation -consider EGD based on results -diet per speech recommendation DVT/GI prophy History Interval history: Right sided weakness Hospitalist Physical - Physical exam Narrative exam: Gen: Not in acute distress, lying in bed, HEENT: Normocephalic, atraumatic Neck: supple, no JVD Heart: S1 and S2 reg, no murmurs, rubs or gallop Lungs: Clear to auscultation bilaterally, Abd: soft, non tender, non distended, normal BS, Ext: No edema, no clubbing, no cyanosis Neuro: Awake, alert, right lower extt weakness - Constitutional Vitals: Temp Pulse Resp BP Pulse Ox 98.1 F 54 L 18 166/87 98 03/29/19 03:46 03/29/19 08:00 03/29/19 03:46 03/29/19 03:46 03/29/19 03:46 General appearance: Present: no acute distress, well-nourished, disheveled Results - Labs CBC & Chem 7: 03/26/19 12:27 03/28/19 19:10 Labs: Laboratory Last Values WBC 5.3 K/mm3 (4.5-11.0) 03/26/19 12:27 RBC 4.58 M/mm3 (3.65-5.03) 03/26/19 12:27 Hgb 13.6 gm/dl (11.8-15.2) 03/26/19 12:27 Hct 40.6 % (35.5-45.6) 03/26/19 12:27 MCV 89 fl (84-94) 03/26/19 12:27 MCH 30 pg (28-32) 03/26/19 12:27 MCHC 33 % (32-34) 03/26/19 12:27 RDW 13.5 % (13.2-15.2) 03/26/19 12:27 Plt Count 228 K/mm3 (140-440) 03/26/19 12:27 Lymph % (Auto) 54.6 % (13.4-35.0) H 03/26/19 12:27 [place] % (Auto) 4.6 % (0.0-7.3) 03/26/19 12:27 Eos % (Auto) 1.1 % (0.0-4.3) 03/26/19 12:27 Baso % (Auto) 0.6 % (0.0-1.8) 03/26/19 12:27 Lymph # 2.9 K/mm3 (1.2-5.4) 03/26/19 12:27 [place] # 0.2 K/mm3 (0.0-0.8) 03/26/19 12:27 Eos # 0.1 K/mm3 (0.0-0.4) 03/26/19 12:27 Baso # 0.0 K/mm3 (0.0-0.1) 03/26/19 12:27 Seg Neutrophils % 39.1 % (40.0-70.0) L 03/26/19 12:27 Seg Neutrophils # 2.1 K/mm3 (1.8-7.7) 03/26/19 12:27 PT 14.6 Sec. (12.2-14.9) 03/25/19 10:31 INR 1.15 (0.87-1.13) H 03/25/19 10:31 APTT 26.4 Sec. (24.2-36.6) 03/25/19 10:31 Thrombin Time 18.9 Sec. (15.1-19.6) 03/25/19 10:31 Sodium 138 mmol/L (137-145) 03/28/19 19:10 Potassium 3.8 mmol/L (3.6-5.0) 03/28/19 19:10 Chloride 104.5 mmol/L (98-107) 03/28/19 19:10 Carbon Dioxide 20 mmol/L (22-30) L 03/28/19 19:10 Anion Gap 17 mmol/L 03/28/19 19:10 BUN 16 mg/dL (9-20) 03/28/19 19:10 Creatinine 0.8 mg/dL (0.8-1.5) 03/28/19 19:10 Estimated GFR > 60 ml/min 03/28/19 19:10 BUN/Creatinine Ratio 20 % 03/28/19 19:10 Glucose 155 mg/dL (75-100) H 03/28/19 19:10 POC Glucose 149 (70-105) H 03/26/19 22:11 Hemoglobin A1c 5.7 % (4-6) 03/25/19 23:24 Calcium 8.9 mg/dL (8.4-10.2) 03/28/19 19:10 Total Bilirubin 0.90 mg/dL (0.1-1.2) 03/26/19 12:27 AST 51 units/L (5-40) H 03/26/19 12:27 ALT 50 units/L (7-56) 03/26/19 12:27 Alkaline Phosphatase 57 units/L (35-129) 03/26/19 12:27 Total Creatine Kinase 117 units/L (55-170) 03/26/19 12:27 CK-MB (CK-2) 4.0 ng/mL (0.0-4.0) 03/25/19 10:31 CK-MB (CK-2) Rel Index 2.7 (0-4) 03/25/19 10:31 Troponin T 0.025 ng/mL (0.00-0.029) 03/25/19 10:31 Total Protein 7.9 g/dL (6.3-8.2) 03/26/19 12:27 Albumin 3.7 g/dL (3.9-5) L 03/26/19 12:27 Albumin/Globulin Ratio 0.9 % 03/26/19 12:27 Triglycerides 116 mg/dL (2-149) 03/26/19 12:27 Cholesterol 157 mg/dL (50-199) 03/26/19 12:27 LDL Cholesterol Direct 117 mg/dL (50-130) 03/26/19 12:27 HDL Cholesterol 27 mg/dL (40-59) L 03/26/19 12:27 Cholesterol/HDL Ratio 5.81 % 03/26/19 12:27 Vitamin B12 531.4 pg/mL (211-911) 03/26/19 12:27 Folate 14.10 ng/mL (7.3-26.0) 03/26/19 12:27 Urine Color Fay (Yellow) 03/26/19 Unknown Urine Turbidity Slightly-cloudy (Clear) 03/26/19 Unknown Urine pH 5.0 (5.0-7.0) 03/26/19 Unknown Ur Specific [place] 1.026 (1.003-1.030) 03/26/19 Unknown Urine Protein <15 mg/dl mg/dL (Negative) 03/26/19 Unknown Urine Glucose (UA) Neg mg/dL (Negative) 03/26/19 Unknown Urine Ketones 20 mg/dL (Negative) 03/26/19 Unknown Urine Blood Neg (Negative) 03/26/19 Unknown Urine Nitrite Neg (Negative) 03/26/19 Unknown Urine Bilirubin Neg (Negative) 03/26/19 Unknown Urine Urobilinogen 4.0 mg/dL (<2.0) 03/26/19 Unknown Ur Leukocyte Esterase Tr (Negative) 03/26/19 Unknown Urine WBC (Auto) 9.0 /HPF (0.0-6.0) H 03/26/19 Unknown Urine RBC (Auto) 3.0 /HPF (0.0-6.0) 03/26/19 Unknown U Epithel Cells (Auto) < 1.0 /HPF (0-13.0) 03/26/19 Unknown Urine Bacteria (Auto) 1+ /HPF (Negative) 03/26/19 Unknown Hyaline Casts 1 /LPF 03/26/19 Unknown Urine Mucus 1+ /HPF 03/26/19 Unknown Urine Eosinophils None seen (None Seen) 03/26/19 Unknown Urine Creatinine 315.6 mg/dL (0.1-20.0) H 03/26/19 Unknown Urine Sodium 56 mmol/L 03/26/19 Unknown Fraction Sodium Excret 0.0 03/26/19 Unknown Active Medications - Current Medications Current Medications: Generic Name Dose Route Start Last Admin Trade Name Freq PRN Reason Stop Dose Admin Acetaminophen 650 mg 03/25/19 23:04 Tylenol PO Q4H PRN Pain MILD(1-3)/Fever >100.5/[place] Atorvastatin Calcium 40 mg 03/28/19 22:00 03/28/19 21:19 Lipitor PO 40 mg QHS CITLALLI Administration Famotidine 20 mg 03/25/19 23:45 03/29/19 09:50 Pepcid PO 20 mg BID CITLALLI Administration Hydromorphone HCl 0.25 mg 03/25/19 23:05 Dilaudid IV Q3H PRN Pain, Moderate (4-6) Sodium Chloride 1,000 mls @ 75 mls/hr 03/26/19 13:00 03/28/19 21:24 Nacl 0.45% 1000 Ml IV 75 mls/hr DIRECT CITLALLI Administration Levofloxacin 500 mg 03/27/19 13:00 03/29/19 09:50 Levaquin PO 03/31/19 10:01 500 mg Q24HR CITLALLI Administration Metoclopramide HCl 10 mg 03/25/19 23:05 Reglan IV Q6H PRN Nausea And Vomiting Ondansetron HCl 4 mg 03/25/19 23:04 Zofran IV Q8H PRN Nausea And Vomiting Oxycodone/Acetaminophen 1 tab 03/25/19 23:05 03/26/19 21:08 Percocet 5/325 PO 1 tab Q6H PRN Administration Pain, Moderate (4-6) Pantoprazole Sodium 40 mg 03/29/19 12:00 03/29/19 12:44 Protonix PO 40 mg QDAY CITLALLI Administration Sodium Bicarbonate 650 mg 03/27/19 22:00 03/29/19 09:50 Sodium Bicarbonate PO 650 mg BID CITLALLI Administration Sodium Chloride 10 ml 03/26/19 10:00 03/29/19 09:50 Sodium Chloride Flush Syringe 10 Ml IV 10 ml BID CITLALLI Administration Sodium Chloride 10 ml 03/25/19 23:04 Sodium Chloride Flush Syringe 10 Ml IV PRN PRN LINE FLUSH Tamsulosin HCl 0.4 mg 03/28/19 10:00 03/29/19 09:50 Flomax PO 0.4 mg QDAY CITLALLI Administration Nutrition/Malnutrition Assess - Dietary Evaluation Nutrition/Malnutrition Findings: Nutrition Notes Start: 03/26/19 12:21 Freq: Status: Active Protocol: Document 03/29/19 11:22 CT (Rec: 03/29/19 11:39 CT [id number]) Co-Sign 03/29/19 11:22 LM Nutrition Notes Initial or Follow up Reassessment Current Diagnosis Diabetes,Hypertension,Stroke Other Pertinent Diagnosis Dysphagia Current Diet Cardiac w/ mechanical soft Labs/Tests POC Glu 155 Pertinent Medications Lipitor NS at 75 mls/hr Height 5 ft 9 in Weight 69.5 kg [place] Body Weight (kg) 72.72 BMI 22.6 Subjective/Other Information Follow up for PO and ONS intakes. Pt stated he ate most of his breakfast, and that it is easier to chew/ swallow. Pt seemed a little confused at time of visit. Pt drank 50% of Ensure for breakfast. Percent of energy/protein needs met: 100% energy / 100% protein Burn Absent Trauma Absent GI Symptoms None Current % PO Good (75-100%) Minimum of two criteria No #1 Nutrition Diagnosis Predicted suboptimal energy intake As Evidenced by Signs and Symptoms Pt report of eating most of his breakfast and drinking all ONS Diagnosis Progress(for reassessment Improved documentation) Is patient on ventilator? No Is Patient Ambulatory and/or Out of Bed No REE-([facility]-confined to bed) [phone] Calculation Used for Recommendations [facility] Additional Notes Protein needs are 66-79g (1-1. 2g/kg) Fluid needs are 1ml/kcal Nutrition Intervention Change Diet Order: Continue current Add Supplement/Snack (indicate name/kcal ENSURE ENLIVE TID /protein ) Provides kCal: 1,050 Provides Protein (gm) 60 Goal #1 Meet at least 80% of kcal and protein needs meals and ONS Anticipated Discharge Needs: Cardiac, Mechanical Soft Follow-Up By: 04/01/19 Additional Comments Follow up for PO/ONS intakes and diet modifications
[2019-03-29] MEDS: ASPIRIN 81 MG TAB CHEW PO SCH (15:32)
[2019-03-30] MEDS: SODIUM CHLORIDE 0.45% 1000 ML 1,000 ML IV SCH ×2 (04:03→18:15)
--- NOTE | 2019-03-30 10:08 | Gastroenterology Progress Note ---
Assessment and Plan 1.dysphagia -etiology-likely 2/2 CVA -esophagram showed dysmotility and reflux but no mass, critical stenosis, or mucosal irregularity -RAWHIDE [employer]IMMER eval showed patient NOT at risk for aspiration -clinically, patient is currently tolerating diet. Denies abd pain or N/V. -no plan for EGD at this time -continue diet as tolerated -continue PPI and supportive care -patient to f/u in clinic upon discharge in 3-4 weeks (may need to consider PEG in the future based on progress if unable to meet nutritional needs with PO intake) -will sign off, please call if needed 2.CVA 3.HTN 4.DM Subjective Date of service: 03/30/19 Principal diagnosis: dysphagia Interval history: No acute distress. Denies abd pain or N/V. Tolerating diet. Objective - Constitutional Vitals: Temp Pulse Resp BP Pulse Ox 98.1 F 65 18 169/85 99 03/30/19 03:47 03/30/19 03:47 03/30/19 03:47 03/30/19 03:47 03/30/19 03:47 General appearance: no acute distress - EENT Eyes: PERRL, EOM intact ENT: hearing intact - Respiratory Respiratory effort: normal - Cardiovascular Rhythm: regular - Gastrointestinal General gastrointestinal: Present: soft, non-tender, non-distended, normal bowel sounds - Neurologic Neurological: alert and oriented x3, generalized weakness, left side weakness - Labs CBC & Chem 7: 03/26/19 12:27 03/28/19 19:10
[2019-03-30] MEDS: TAMSULOSIN 0.4 MG CAP PO SCH (10:12)
[2019-03-30] MEDS: SODIUM BICARBONATE 650 MG TAB PO SCH ×2 (10:12→23:57)
[2019-03-30] MEDS: PANTOPRAZOLE 40 MG TAB PO SCH (10:12)
[2019-03-30] MEDS: FAMOTIDINE 20 MG TAB PO SCH ×2 (10:13→23:57)
[2019-03-30] MEDS: ASPIRIN 81 MG TAB CHEW PO SCH (10:13)
[2019-03-30] MEDS: levoFLOXacin 500 MG TAB PO SCH (10:13)
--- NOTE | 2019-03-30 10:42 | Progress Note ---
Assessment and Plan Assessment and plan: 68-year-old male presenting with a chief complaint of Rt lower extremity weakness and slurred speech. Family states the patient has been dragging his right lower extremity and has slurred speech for the past 7 days. Family states over the past 4 days the patient has exhibited difficulty swallowing and has not been able to keep any food down. When asked how he is feeling the patient replies "I don't feel good." The patient fell several days ago and went to his primary physician's office where x-rays were performed (no fractures seen). MRI brain: IMPRESSION: 1. Limited MRI scan due to motion related artifacts Streaky subacute ischemic area in the right cerebellar; multiple chronic streaky ischemic changes in both cerebellar hemispheres Confluent periventricular and deep hemispheric white matter lesions in both cerebral hemispheres due to microvascular faint angiopathy. Renal US: IMPRESSION 1. No acute sonographic abnormality of the kidneys. Enlarged prostate with thickened bladder wall suggesting outlet obstruction. 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 PT recommends acute rehab Discussed with case management Awaiting placement Hypertensive urgency Add Norvasc Beta natalie on hold sinus bradycardia beta natalie on hold Type 2 diabetes mellitus Excellent control A1c is 5.7. Medically stable for discharge. awaiting placement to Rehab History Interval history: Right sided weakness Hospitalist Physical - Physical exam Narrative exam: Gen: Not in acute distress, lying in bed, HEENT: Normocephalic, atraumatic Neck: supple, no JVD Heart: S1 and S2 reg, no murmurs, rubs or gallop Lungs: Clear to auscultation bilaterally, Abd: soft, non tender, non distended, normal BS, Ext: No edema, no clubbing, no cyanosis Neuro: Awake, alert, right sided weakness - Constitutional Vitals: Temp Pulse Resp BP Pulse Ox 98.1 F 65 18 169/85 99 03/30/19 03:47 03/30/19 03:47 03/30/19 03:47 03/30/19 03:47 03/30/19 03:47 General appearance: Present: no acute distress, well-nourished Results - Labs CBC & Chem 7: 03/26/19 12:27 03/28/19 19:10 Labs: Laboratory Last Values WBC 5.3 K/mm3 (4.5-11.0) 03/26/19 12:27 RBC 4.58 M/mm3 (3.65-5.03) 03/26/19 12:27 Hgb 13.6 gm/dl (11.8-15.2) 03/26/19 12:27 Hct 40.6 % (35.5-45.6) 03/26/19 12:27 MCV 89 fl (84-94) 03/26/19 12:27 MCH 30 pg (28-32) 03/26/19 12:27 MCHC 33 % (32-34) 03/26/19 12:27 RDW 13.5 % (13.2-15.2) 03/26/19 12:27 Plt Count 228 K/mm3 (140-440) 03/26/19 12:27 Lymph % (Auto) 54.6 % (13.4-35.0) H 03/26/19 12:27 [place] % (Auto) 4.6 % (0.0-7.3) 03/26/19 12:27 Eos % (Auto) 1.1 % (0.0-4.3) 03/26/19 12:27 Baso % (Auto) 0.6 % (0.0-1.8) 03/26/19 12: Lymph # 2.9 K/mm3 (1.2-5.4) 03/26/19 12:27 [place] # 0.2 K/mm3 (0.0-0.8) 03/26/19 12:27 Eos # 0.1 K/mm3 (0.0-0.4) 03/26/19 12:27 Baso # 0.0 K/mm3 (0.0-0.1) 03/26/19 12:27 Seg Neutrophils % 39.1 % (40.0-70.0) L 03/26/19 12:27 Seg Neutrophils # 2.1 K/mm3 (1.8-7.7) 03/26/19 12:27 PT 14.6 Sec. (12.2-14.9) 03/25/19 10:31 INR 1.15 (0.87-1.13) H 03/25/19 10:31 APTT 26.4 Sec. (24.2-36.6) 03/25/19 10:31 Thrombin Time 18.9 Sec. (15.1-19.6) 03/25/19 10:31 Sodium 138 mmol/L (137-145) 03/28/19 19:10 Potassium 3.8 mmol/L (3.6-5.0) 03/28/19 19:10 Chloride 104.5 mmol/L (98-107) 03/28/19 19:10 Carbon Dioxide 20 mmol/L (22-30) L 03/28/19 19:10 Anion Gap 17 mmol/L 03/28/19 19:10 BUN 16 mg/dL (9-20) 03/28/19 19:10 Creatinine 0.8 mg/dL (0.8-1.5) 03/28/19 19:10 Estimated GFR > 60 ml/min 03/28/19 19:10 BUN/Creatinine Ratio 20 % 03/28/19 19:10 Glucose 155 mg/dL (75-100) H 03/28/19 19:10 POC Glucose 149 (70-105) H 03/26/19 22:11 Hemoglobin A1c 5.7 % (4-6) 03/25/19 23:24 Calcium 8.9 mg/dL (8.4-10.2) 03/28/19 19:10 Total Bilirubin 0.90 mg/dL (0.1-1.2) 03/26/19 12:27 AST 51 units/L (5-40) H 03/26/19 12:27 ALT 50 units/L (7-56) 03/26/19 12:27 Alkaline Phosphatase 57 units/L (35-129) 03/26/19 12:27 Total Creatine Kinase 117 units/L (55-170) 03/26/19 12:27 CK-MB (CK-2) 4.0 ng/mL (0.0-4.0) 03/25/19 10:31 CK-MB (CK-2) Rel Index 2.7 (0-4) 03/25/19 10:31 Troponin T 0.025 ng/mL (0.00-0.029) 03/25/19 10:31 Total Protein 7.9 g/dL (6.3-8.2) 03/26/19 12:27 Albumin 3.7 g/dL (3.9-5) L 03/26/19 12:27 Albumin/Globulin Ratio 0.9 % 03/26/19 12:27 Triglycerides 116 mg/dL (2-149) 03/26/19 12:27 Cholesterol 157 mg/dL (50-199) 03/26/19 12:27 LDL Cholesterol Direct 117 mg/dL (50-130) 03/26/19 12:27 HDL Cholesterol 27 mg/dL (40-59) L 03/26/19 12:27 Cholesterol/HDL Ratio 5.81 % 03/26/19 12:27 Vitamin B12 531.4 pg/mL (211-911) 03/26/19 12:27 Folate 14.10 ng/mL (7.3-26.0) 03/26/19 12:27 Urine Color Fay (Yellow) 03/26/19 Unknown Urine Turbidity Slightly-cloudy (Clear) 03/26/19 Unknown Urine pH 5.0 (5.0-7.0) 03/26/19 Unknown Ur Specific [place] 1.026 (1.003-1.030) 03/26/19 Unknown Urine Protein <15 mg/dl mg/dL (Negative) 03/26/19 Unknown Urine Glucose (UA) Neg mg/dL (Negative) 03/26/19 Unknown Urine Ketones 20 mg/dL (Negative) 03/26/19 Unknown Urine Blood Neg (Negative) 03/26/19 Unknown Urine Nitrite Neg (Negative) 03/26/19 Unknown Urine Bilirubin Neg (Negative) 03/26/19 Unknown Urine Urobilinogen 4.0 mg/dL (<2.0) 03/26/19 Unknown Ur Leukocyte Esterase Tr (Negative) 03/26/19 Unknown Urine WBC (Auto) 9.0 /HPF (0.0-6.0) H 03/26/19 Unknown Urine RBC (Auto) 3.0 /HPF (0.0-6.0) 03/26/19 Unknown U Epithel Cells (Auto) < 1.0 /HPF (0-13.0) 03/26/19 Unknown Urine Bacteria (Auto) 1+ /HPF (Negative) 03/26/19 Unknown Hyaline Casts 1 /LPF 03/26/19 Unknown Urine Mucus 1+ /HPF 03/26/19 Unknown Urine Eosinophils None seen (None Seen) 03/26/19 Unknown Urine Creatinine 315.6 mg/dL (0.1-20.0) H 03/26/19 Unknown Urine Sodium 56 mmol/L 03/26/19 Unknown Fraction Sodium Excret 0.0 03/26/19 Unknown Active Medications - Current Medications Current Medications: Generic Name Dose Route Start Last Admin Trade Name Freq PRN Reason Stop Dose Admin Acetaminophen 650 mg 03/25/19 23:04 Tylenol PO Q4H PRN Pain MILD(1-3)/Fever >100.5/[place] Aspirin 81 mg 03/29/19 14:00 03/30/19 10:13 Baby Aspirin PO 81 mg QDAY CITLALLI Administration Atorvastatin Calcium 40 mg 03/28/19 22:00 03/29/19 21:37 Lipitor PO 40 mg QHS CITLALLI Administration Famotidine 20 mg 03/25/19 23:45 03/30/19 10:13 Pepcid PO 20 mg BID CITLALLI Administration Hydromorphone HCl 0.25 mg 03/25/19 23:05 Dilaudid IV Q3H PRN Pain, Moderate (4-6) Sodium Chloride 1,000 mls @ 75 mls/hr 03/26/19 13:00 03/30/19 04:03 Nacl 0.45% 1000 Ml IV 75 mls/hr DIRECT CITLALLI Administration Levofloxacin 500 mg 03/27/19 13:00 03/30/19 10:13 Levaquin PO 03/31/19 10:01 500 mg Q24HR CITLALLI Administration Metoclopramide HCl 10 mg 03/25/19 23:05 Reglan IV Q6H PRN Nausea And Vomiting Ondansetron HCl 4 mg 03/25/19 23:04 Zofran IV Q8H PRN Nausea And Vomiting Oxycodone/Acetaminophen 1 tab 03/25/19 23:05 03/26/19 21:08 Percocet 5/325 PO 1 tab Q6H PRN Administration Pain, Moderate (4-6) Pantoprazole Sodium 40 mg 03/29/19 12:00 03/30/19 10:12 Protonix PO 40 mg QDAY CITLALLI Administration Sodium Bicarbonate 650 mg 03/27/19 22:00 03/30/19 10:12 Sodium Bicarbonate PO 650 mg BID CITLALLI Administration Sodium Chloride 10 ml 03/26/19 10:00 03/30/19 10:13 Sodium Chloride Flush Syringe 10 Ml IV 10 ml BID CITLALLI Administration Sodium Chloride 10 ml 03/25/19 23:04 Sodium Chloride Flush Syringe 10 Ml IV PRN PRN LINE FLUSH Tamsulosin HCl 0.4 mg 03/28/19 10:00 03/30/19 10:12 Flomax PO 0.4 mg QDAY CITLALLI Administration Nutrition/Malnutrition Assess - Dietary Evaluation Nutrition/Malnutrition Findings: Nutrition Notes Start: 03/26/19 12:21 Freq: Status: Active Protocol: Document 03/29/19 11:22 CT (Rec: 03/29/19 11:39 CT [id number]) Co-Sign 03/29/19 11:22 LM Nutrition Notes Initial or Follow up Reassessment Current Diagnosis Diabetes,Hypertension,Stroke Other Pertinent Diagnosis Dysphagia Current Diet Cardiac w/ mechanical soft Labs/Tests POC Glu 155 Pertinent Medications Lipitor NS at 75 mls/hr Height 5 ft 9 in Weight 69.5 kg [place] Body Weight (kg) 72.72 BMI 22.6 Subjective/Other Information Follow up for PO and ONS intakes. Pt stated he ate most of his breakfast, and that it is easier to chew/ swallow. Pt seemed a little confused at time of visit. Pt drank 50% of Ensure for breakfast. Percent of energy/protein needs met: 100% energy / 100% protein Burn Absent Trauma Absent GI Symptoms None Current % PO Good (75-100%) Minimum of two criteria No #1 Nutrition Diagnosis Predicted suboptimal energy intake As Evidenced by Signs and Symptoms Pt report of eating most of his breakfast and drinking all ONS Diagnosis Progress(for reassessment Improved documentation) Is patient on ventilator? No Is Patient Ambulatory and/or Out of Bed No REE-([facility]-confined to bed) [phone] Calculation Used for Recommendations [facility] Additional Notes Protein needs are 66-79g (1-1. 2g/kg) Fluid needs are 1ml/kcal Nutrition Intervention Change Diet Order: Continue current Add Supplement/Snack (indicate name/kcal ENSURE ENLIVE TID /protein ) Provides kCal: 1,050 Provides Protein (gm) 60 Goal #1 Meet at least 80% of kcal and protein needs meals and ONS Anticipated Discharge Needs: Cardiac, Mechanical Soft Follow-Up By: 04/01/19 Additional Comments Follow up for PO/ONS intakes and diet modifications
[2019-03-31] MEDS: levoFLOXacin 500 MG TAB PO SCH (10:26)
[2019-03-31] MEDS: FAMOTIDINE 20 MG TAB PO SCH ×2 (10:26→22:08)
[2019-03-31] MEDS: SODIUM BICARBONATE 650 MG TAB PO SCH ×2 (10:26→22:07)
[2019-03-31] MEDS: PANTOPRAZOLE 40 MG TAB PO SCH (10:26)
[2019-03-31] MEDS: TAMSULOSIN 0.4 MG CAP PO SCH (10:26)
[2019-03-31] MEDS: ASPIRIN 81 MG TAB CHEW PO SCH (10:26)
--- NOTE | 2019-03-31 18:16 | Progress Note ---
Assessment and Plan Assessment and plan: 68-year-old male presenting with a chief complaint of Rt lower extremity weakness and slurred speech. Family states the patient has been dragging his right lower extremity and has slurred speech for the past 7 days. Family states over the past 4 days the patient has exhibited difficulty swallowing and has not been able to keep any food down. When asked how he is feeling the patient replies "I don't feel good." The patient fell several days ago and went to his primary physician's office where x-rays were performed (no fractures seen). MRI brain: IMPRESSION: 1. Limited MRI scan due to motion related artifacts Streaky subacute ischemic area in the right cerebellar; multiple chronic streaky ischemic changes in both cerebellar hemispheres Confluent periventricular and deep hemispheric white matter lesions in both cerebral hemispheres due to microvascular faint angiopathy. Renal US: IMPRESSION 1. No acute sonographic abnormality of the kidneys. Enlarged prostate with thickened bladder wall suggesting outlet obstruction. 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 PT recommends acute rehab Discussed with case management Awaiting placement Hypertensive urgency Add Norvasc Beta natalie on hold sinus bradycardia beta natalie on hold Type 2 diabetes mellitus Excellent control A1c is 5.7. Medically stable for discharge. awaiting placement to Rehab History Interval history: Right sided weakness Hospitalist Physical - Physical exam Narrative exam: Gen: Not in acute distress, lying in bed, HEENT: Normocephalic, atraumatic Neck: supple, no JVD Heart: S1 and S2 reg, no murmurs, rubs or gallop Lungs: Clear to auscultation bilaterally, Abd: soft, non tender, non distended, normal BS, Ext: No edema, no clubbing, no cyanosis Neuro: Awake, alert, right sided weakness - Constitutional Vitals: Temp Pulse Resp BP Pulse Ox 98.1 F 74 18 148/63 99 03/31/19 15:41 03/31/19 15:41 03/31/19 15:41 03/31/19 15:41 03/31/19 15:41 General appearance: Present: no acute distress, well-nourished Results - Labs CBC & Chem 7: 03/26/19 12:27 03/28/19 19:10 Labs: Laboratory Last Values WBC 5.3 K/mm3 (4.5-11.0) 03/26/19 12:27 RBC 4.58 M/mm3 (3.65-5.03) 03/26/19 12:27 Hgb 13.6 gm/dl (11.8-15.2) 03/26/19 12:27 Hct 40.6 % (35.5-45.6) 03/26/19 12:27 MCV 89 fl (84-94) 03/26/19 12:27 MCH 30 pg (28-32) 03/26/19 12:27 MCHC 33 % (32-34) 03/26/19 12:27 RDW 13.5 % (13.2-15.2) 03/26/19 12:27 Plt Count 228 K/mm3 (140-440) 03/26/19 12:27 Lymph % (Auto) 54.6 % (13.4-35.0) H 03/26/19 12:27 [place] % (Auto) 4.6 % (0.0-7.3) 03/26/19 12:27 Eos % (Auto) 1.1 % (0.0-4.3) 03/26/19 12:27 Baso % (Auto) 0.6 % (0.0-1.8) 03/26/19 12: Lymph # 2.9 K/mm3 (1.2-5.4) 03/26/19 12:27 [place] # 0.2 K/mm3 (0.0-0.8) 03/26/19 12:27 Eos # 0.1 K/mm3 (0.0-0.4) 03/26/19 12:27 Baso # 0.0 K/mm3 (0.0-0.1) 03/26/19 12:27 Seg Neutrophils % 39.1 % (40.0-70.0) L 03/26/19 12:27 Seg Neutrophils # 2.1 K/mm3 (1.8-7.7) 03/26/19 12:27 PT 14.6 Sec. (12.2-14.9) 03/25/19 10:31 INR 1.15 (0.87-1.13) H 03/25/19 10:31 APTT 26.4 Sec. (24.2-36.6) 03/25/19 10:31 Thrombin Time 18.9 Sec. (15.1-19.6) 03/25/19 10:31 Sodium 138 mmol/L (137-145) 03/28/19 19:10 Potassium 3.8 mmol/L (3.6-5.0) 03/28/19 19:10 Chloride 104.5 mmol/L (98-107) 03/28/19 19:10 Carbon Dioxide 20 mmol/L (22-30) L 03/28/19 19:10 Anion Gap 17 mmol/L 03/28/19 19:10 BUN 16 mg/dL (9-20) 03/28/19 19:10 Creatinine 0.8 mg/dL (0.8-1.5) 03/28/19 19:10 Estimated GFR > 60 ml/min 03/28/19 19:10 BUN/Creatinine Ratio 20 % 03/28/19 19:10 Glucose 155 mg/dL (75-100) H 03/28/19 19:10 POC Glucose 149 (70-105) H 03/26/19 22:11 Hemoglobin A1c 5.7 % (4-6) 03/25/19 23:24 Calcium 8.9 mg/dL (8.4-10.2) 03/28/19 19:10 Total Bilirubin 0.90 mg/dL (0.1-1.2) 03/26/19 12:27 AST 51 units/L (5-40) H 03/26/19 12:27 ALT 50 units/L (7-56) 03/26/19 12:27 Alkaline Phosphatase 57 units/L (35-129) 03/26/19 12:27 Total Creatine Kinase 117 units/L (55-170) 03/26/19 12:27 CK-MB (CK-2) 4.0 ng/mL (0.0-4.0) 03/25/19 10:31 CK-MB (CK-2) Rel Index 2.7 (0-4) 03/25/19 10:31 Troponin T 0.025 ng/mL (0.00-0.029) 03/25/19 10:31 Total Protein 7.9 g/dL (6.3-8.2) 03/26/19 12:27 Albumin 3.7 g/dL (3.9-5) L 03/26/19 12:27 Albumin/Globulin Ratio 0.9 % 03/26/19 12:27 Triglycerides 116 mg/dL (2-149) 03/26/19 12:27 Cholesterol 157 mg/dL (50-199) 03/26/19 12:27 LDL Cholesterol Direct 117 mg/dL (50-130) 03/26/19 12:27 HDL Cholesterol 27 mg/dL (40-59) L 03/26/19 12:27 Cholesterol/HDL Ratio 5.81 % 03/26/19 12:27 Vitamin B12 531.4 pg/mL (211-911) 03/26/19 12:27 Folate 14.10 ng/mL (7.3-26.0) 03/26/19 12:27 Urine Color Fay (Yellow) 03/26/19 Unknown Urine Turbidity Slightly-cloudy (Clear) 03/26/19 Unknown Urine pH 5.0 (5.0-7.0) 03/26/19 Unknown Ur Specific [place] 1.026 (1.003-1.030) 03/26/19 Unknown Urine Protein <15 mg/dl mg/dL (Negative) 03/26/19 Unknown Urine Glucose (UA) Neg mg/dL (Negative) 03/26/19 Unknown Urine Ketones 20 mg/dL (Negative) 03/26/19 Unknown Urine Blood Neg (Negative) 03/26/19 Unknown Urine Nitrite Neg (Negative) 03/26/19 Unknown Urine Bilirubin Neg (Negative) 03/26/19 Unknown Urine Urobilinogen 4.0 mg/dL (<2.0) 03/26/19 Unknown Ur Leukocyte Esterase Tr (Negative) 03/26/19 Unknown Urine WBC (Auto) 9.0 /HPF (0.0-6.0) H 03/26/19 Unknown Urine RBC (Auto) 3.0 /HPF (0.0-6.0) 03/26/19 Unknown U Epithel Cells (Auto) < 1.0 /HPF (0-13.0) 03/26/19 Unknown Urine Bacteria (Auto) 1+ /HPF (Negative) 03/26/19 Unknown Hyaline Casts 1 /LPF 03/26/19 Unknown Urine Mucus 1+ /HPF 03/26/19 Unknown Urine Eosinophils None seen (None Seen) 03/26/19 Unknown Urine Creatinine 315.6 mg/dL (0.1-20.0) H 03/26/19 Unknown Urine Sodium 56 mmol/L 03/26/19 Unknown Fraction Sodium Excret 0.0 03/26/19 Unknown Active Medications - Current Medications Current Medications: Generic Name Dose Route Start Last Admin Trade Name Freq PRN Reason Stop Dose Admin Acetaminophen 650 mg 03/25/19 23:04 Tylenol PO Q4H PRN Pain MILD(1-3)/Fever >100.5/[place] Aspirin 81 mg 03/29/19 14:00 03/31/19 10:26 Baby Aspirin PO 81 mg QDAY CITLALLI Administration Atorvastatin Calcium 40 mg 03/28/19 22:00 03/30/19 23:57 Lipitor PO 40 mg QHS CITLALLI Administration Famotidine 20 mg 03/25/19 23:45 03/31/19 10:26 Pepcid PO 20 mg BID CITLALLI Administration Hydromorphone HCl 0.25 mg 03/25/19 23:05 Dilaudid IV Q3H PRN Pain, Moderate (4-6) Metoclopramide HCl 10 mg 03/25/19 23:05 Reglan IV Q6H PRN Nausea And Vomiting Ondansetron HCl 4 mg 03/25/19 23:04 Zofran IV Q8H PRN Nausea And Vomiting Oxycodone/Acetaminophen 1 tab 03/25/19 23:05 03/26/19 21:08 Percocet 5/325 PO 1 tab Q6H PRN Administration Pain, Moderate (4-6) Pantoprazole Sodium 40 mg 03/29/19 12:00 03/31/19 10:26 Protonix PO 40 mg QDAY CITLALLI Administration Sodium Bicarbonate 650 mg 03/27/19 22:00 03/31/19 10:26 Sodium Bicarbonate PO 650 mg BID CITLALLI Administration Sodium Chloride 10 ml 03/26/19 10:00 03/31/19 10:26 Sodium Chloride Flush Syringe 10 Ml IV 10 ml BID CITLALLI Administration Sodium Chloride 10 ml 03/25/19 23:04 Sodium Chloride Flush Syringe 10 Ml IV PRN PRN LINE FLUSH Tamsulosin HCl 0.4 mg 03/28/19 10:00 03/31/19 10:26 Flomax PO 0.4 mg QDAY CITLALLI Administration Nutrition/Malnutrition Assess - Dietary Evaluation Nutrition/Malnutrition Findings: Nutrition Notes Start: 03/26/19 12:21 Freq: Status: Active Protocol: Document 03/29/19 11:22 CT (Rec: 03/29/19 11:39 CT [id number]) Co-Sign 03/29/19 11:22 LM Nutrition Notes Initial or Follow up Reassessment Current Diagnosis Diabetes,Hypertension,Stroke Other Pertinent Diagnosis Dysphagia Current Diet Cardiac w/ mechanical soft Labs/Tests POC Glu 155 Pertinent Medications Lipitor NS at 75 mls/hr Height 5 ft 9 in Weight 69.5 kg [place] Body Weight (kg) 72.72 BMI 22.6 Subjective/Other Information Follow up for PO and ONS intakes. Pt stated he ate most of his breakfast, and that it is easier to chew/ swallow. Pt seemed a little confused at time of visit. Pt drank 50% of Ensure for breakfast. Percent of energy/protein needs met: 100% energy / 100% protein Burn Absent Trauma Absent GI Symptoms None Current % PO Good (75-100%) Minimum of two criteria No #1 Nutrition Diagnosis Predicted suboptimal energy intake As Evidenced by Signs and Symptoms Pt report of eating most of his breakfast and drinking all ONS Diagnosis Progress(for reassessment Improved documentation) Is patient on ventilator? No Is Patient Ambulatory and/or Out of Bed No REE-([place]-confined to bed) 8434.316 Calculation Used for Recommendations [facility] Additional Notes Protein needs are 66-79g (1-1. 2g/kg) Fluid needs are 1ml/kcal Nutrition Intervention Change Diet Order: Continue current Add Supplement/Snack (indicate name/kcal ENSURE ENLIVE TID /protein ) Provides kCal: 1,050 Provides Protein (gm) 60 Goal #1 Meet at least 80% of kcal and protein needs meals and ONS Anticipated Discharge Needs: Cardiac, Mechanical Soft Follow-Up By: 04/01/19 Additional Comments Follow up for PO/ONS intakes and diet modifications
[2019-04-01 07:54] VITALS: BP 159/77
[2019-04-01] MEDS ORDERED: ENOXAPARIN 40 MG/0.4 ML INJ SUB-Q SCH (10:00)
--- NOTE | 2019-04-01 11:11 | Discharge Summary ---
Providers - Providers Date of Admission: 03/25/19 13:29 Date of discharge: 04/01/19 Attending physician: RICKY HOBSON 03/25/19 23:05 Consult to Physician [CONS] Routine Comment: Consulting Provider: PERRI HARDWICK Physician Instructions: Reason For Exam: CKD 03/25/19 23:08 Consult to Physician [CONS] Routine Comment: Consulting Provider: AVA WILLIS Physician Instructions: Reason For Exam: CVA 03/25/19 23:10 Occupational Therapy Evaluate and Treat [CONS] Routine Comment: Reason For Exam: Neuro deficits Physical Therapy Evaluation and Treat [CONS] Routine Comment: Reason For Exam: Neuro deficits 03/26/19 19:30 Consult to Case Management [CONS] Routine Services Needed at Discharge: Home Health Services Notified:: no Additional Physician Instructions: daughter states " patient receiving home health care till mar 4, and i want to continue again with the home health care. " 03/27/19 13:23 Consult to Physician [CONS] Routine Comment: Consulting Provider: DALLIN LOPEZ Physician Instructions: Reason For Exam: dysphagia odynophaia 03/28/19 10:39 Speech Therapy Evaluation and Treat [CONS] Routine Reason For Exam: stroke Primary care physician: ROBYN PRICE Hospitalization Condition: Stable Hospital course: 68-year-old male presented with a chief complaint of Rt lower extremity weakness and slurred speech. Family stated the patient has been dragging his right lower extremity and has slurred speech for the past 7 days and over the past 4 days the patient has exhibited difficulty swallowing and has not been able to keep any food down. The patient fell several days ago and went to his primary physician's office where x-rays were performed (no fractures seen). he was admitted for further evaluation and Mx. MRI brain: IMPRESSION: 1. Limited MRI scan due to motion related artifacts Streaky subacute ischemic area in the right cerebellar; multiple chronic streaky ischemic changes in both cerebellar hemispheres Confluent periventricular and deep hemispheric white matter lesions in both cerebral hemispheres due to microvascular faint angiopathy. Renal US: IMPRESSION 1. No acute sonographic abnormality of the kidneys. Enlarged prostate with thickened bladder wall suggesting outlet obstruction. PT recommended acute rehab Discharge diagnosis and mx: /Subacute stroke Patient appears to have had multiple subacute or old CVAs. PT recommends acute rehab Discussed with case management discharged to acute rehab in stable condition /Hypertensive urgency, stable on discharge Added Norvasc Beta natalie on hold /sinus bradycardia beta natalie on hold /Type 2 diabetes mellitus Excellent control A1c is 5.7. /Dvt Px, SCD Medically stable for discharge. pt going to [facility]. Disposition: [id number]PT [facility] FAC[facility] Time spent for discharge: 34 minutes Core Measure Documentation - Palliative Care Palliative Care/ Comfort Measures: Not Applicable - Core Measures Any of the following diagnoses?: stroke - Stroke Discharge Requirements Statin for LDL = or >70 mg/dl on DC: Yes Anticoag for atrial fib/atrial flutter: Not Applicable Antithrombotic for ischemic stroke: Yes Exam - Physical Exam Narrative exam: Gen: Not in acute distress, lying in bed, HEENT: Normocephalic, atraumatic Neck: supple, no JVD Heart: S1 and S2 reg, no murmurs, rubs or gallop Lungs: Clear to auscultation bilaterally, Abd: soft, non tender, non distended, normal BS, Ext: No edema, no clubbing, no cyanosis Neuro: Awake, alert, right sided weakness - Constitutional Vitals: Temp Pulse Resp BP Pulse Ox 98.3 F 57 L 18 159/77 98 04/01/19 07:45 04/01/19 07:45 04/01/19 07:45 04/01/19 07:45 04/01/19 07:45 Plan Activity: fall precautions Diet: low fat, low salt, diabetic Follow up with: ROBYN PRICE MD [Primary Care Provider] - 7 Days RANULFO ARRIAGA MD [Staff Physician] - 7 Days
[2019-04-01] MEDS: FAMOTIDINE 20 MG TAB PO SCH (11:45)
[2019-04-01] MEDS: PANTOPRAZOLE 40 MG TAB PO SCH (11:45)
[2019-04-01] MEDS: ASPIRIN 81 MG TAB CHEW PO SCH (11:45)
[2019-04-01] MEDS: SODIUM BICARBONATE 650 MG TAB PO SCH (11:45)
[2019-04-01] MEDS: TAMSULOSIN 0.4 MG CAP PO SCH (11:45)
== END 2019-04-01 13:30 | DRG 64 ==
LOC: ED 09:43 → 4A 13:29 → 2B-ACE 03-31 18:33
PROVIDERS: ADMIT Internal Medicine; ATTEND Internal Medicine
DX: I63.9 Cerebral infarction, unspecified (principal); N17.0 Acute kidney failure with tubular necrosis; E87.2 Acidosis; G81.94 Hemiplegia, unspecified affecting left nondominant side; I10 Essential (primary) hypertension; R47.81 Slurred speech; I16.0 Hypertensive urgency; R00.1 Bradycardia, unspecified; E11.9 Type 2 diabetes mellitus without complications; N40.0 Benign prostatic hyperplasia without lower urinary tract symptoms; R13.11 Dysphagia, oral phase
CPT/HCPCS: 36415; 70450; 70551; 74220; 76770; 80048; 80053; 80061; 81001; 82550; 82553; 82570; 82607; 82747; 82962; 83036; 84300; 84484; 85025; 85610; 85670; 85730; 87086; 89050; 93005; 93010; 93306; 93880; 99406; G0378; A9270-GY; J1650; J7030